=== PATIENT | female | born 1965 | race Hispanic/Latino ===

== ENCOUNTER 2019-04-20 07:43 | Emergency (ER) | payer OTHER ==
[2019-04-20] MEDS ORDERED: CEFTRIAXONE SODIUM 2 GM VIAL ONE (08:25)
[2019-04-20] MEDS ORDERED: ONDANSETRON HCL 4 MG/2 ML VIAL ONE (08:25)
[2019-04-20] MEDS ORDERED: SODIUM CHLORIDE 0.9% 1000ML 2,000 ML IV ONE (08:26)
[2019-04-20] MEDS ORDERED: SODIUM CHLORIDE 0.9% 500ML 500 ML IV ONE (08:27)
[2019-04-20 08:32] LABS: BASOPHILS % (AUTO) 0.3 % (0.0-5.0); EOSINOPHILS % (AUTO) 2.2 % (0.0-8.0); HEMATOCRIT 34.2 % (36-48); LYMPHOCYTES % (AUTO) 14.2 % (21.0-51.0); MEAN CORPUSCULAR HEMOGLOBIN 29.2 pg (27.0-33.0); MEAN CORPUSCULAR HGB CONC 33.8 g/dL (32.0-36.0); MEAN CORPUSCULAR VOLUME 86.3 fL (79-99); MONOCYTES % (AUTO) 5.1 % (3.0-13.0); NEUTROPHILS % (AUTO) 78.2 % (40.0-77.0); PLATELET COUNT (AUTO) 270 K/uL (130-400); RED BLOOD CELL COUNT(AUTO) 3.96 MIL/uL (4.00-5.50); RED CELL DISTRIBUTION WIDTH 13.3 % (11.0-15.5); WHITE BLOOD COUNT (AUTO) 12.9 K/uL (4.8-10.8)
[2019-04-20 08:37] LABS: CARBON DIOXIDE 27 mmol/L (21-32); CHLORIDE 106 mmol/L (101-111); CREATININE 0.9 mg/dL (0.5-1.5); GLOMERULAR FILTR. RATE CALC 69 mL/min (>60); GLUCOSE,RANDOM 135 mg/dL (70-105); POTASSIUM 3.3 mmol/L (3.5-5.1); SODIUM SERUM 142 mmol/L (136-145); UREA NITROGEN, BLOOD 11 mg/dL (7-18)
[2019-04-20 08:40] LABS: INR 0.95 (0.85-1.15); PARTIAL THROMBOPLASTIN TIME 27.7 SEC (26.3-35.5)
[2019-04-20 08:48] LABS: ALANINE AMINOTRANSFERASE 33 U/L (12-78); ALBUMIN 3.4 g/dL (3.5-5.0); ASPARTATE AMINOTRANSFERASE 25 U/L (10-37); BILIRUBIN,TOTAL 0.4 mg/dL (0.2-1.0); CREATINE KINASE, TOTAL 85 U/L (21-232); MYOGLOBIN 47 ng/mL (10-92); TROPONIN I < 0.04 ng/mL (0.00-0.06)
[2019-04-20 08:52] LABS: APPEARANCE,URINE CLEAR (CLEAR); BILIRUBIN,URINE NEGATIVE (NEGATIVE); COLOR,URINE YELLOW (YELLOW); GLUCOSE, URINE (UA) NEGATIVE (NEGATIVE); KETONES,URINE NEGATIVE (NEGATIVE); LEUKOCYTE ESTERASE ,URINE NEGATIVE (NEGATIVE); NITRATE,URINE NEGATIVE (NEGATIVE); OCCULT BLOOD,URINE NEGATIVE (NEGATIVE); PH,URINE 5.5 (5.0-8.0); PROTEIN,URINE NEGATIVE (NEGATIVE); UROBILINOGEN,URINE 0.2 mg/dL (0.2-1.0)
[2019-04-20] MEDS ORDERED: DIPHENOXYLATE HCL/ATROPINE 2.5/0.025 MG TAB PO ONE (09:15)
== END 2019-04-20 10:55 | disposition home or self-care (01) ==
LOC: EDH 07:43
DX: K52.9 Noninfective gastroenteritis and colitis, unspecified (principal); E11.9 Type 2 diabetes mellitus without complications; I10 Essential (primary) hypertension; F32.9 Major depressive disorder, single episode, unspecified; Z90.710 Acquired absence of both cervix and uterus
CPT/HCPCS: 36415; 71045; 80053; 81003; 82550; 83605; 83874; 84484; 85025; 85610; 85730; 87040 ×2; 87088; 87804 ×2; 93005; 96361; 96374; 96375; 99285; J0696; J2405; J7030; J7040

== ENCOUNTER → 2019-04-30 | Outpatient (CLI) | payer OTHER ==
[~2019-04-30] VITALS: Ht 153.7 cm; Wt 78.6 kg
[~2019-04-30] MED LIST: ASPI-555 PO; CALC600T12 PO; CEFAZOLIN SODIUM 1 GM VIAL IVP SCH; CHOL100040 PO; CLOT15CR5 TP; HYDR25TA PO; IRBE300T19 PO; LACT1CAP72 PO; RANI150T7 PO; SERTRALINE PO
[2019-04-30 10:16] LABS: BASOPHILS % (AUTO) 0.6 % (0.0-5.0); EOSINOPHILS % (AUTO) 2.3 % (0.0-8.0); HEMATOCRIT 36.6 % (36-48); LYMPHOCYTES % (AUTO) 25.1 % (21.0-51.0); MEAN CORPUSCULAR HEMOGLOBIN 29.6 pg (27.0-33.0); MEAN CORPUSCULAR HGB CONC 33.7 g/dL (32.0-36.0); MEAN CORPUSCULAR VOLUME 87.9 fL (79-99); MONOCYTES % (AUTO) 5.1 % (3.0-13.0); NEUTROPHILS % (AUTO) 66.9 % (40.0-77.0); NUCLEATED RED BLOOD CELLS 0.1 % (0.0-0.19); PLATELET COUNT (AUTO) 321 K/uL (130-400); RED BLOOD CELL COUNT(AUTO) 4.16 MIL/uL (4.00-5.50); WHITE BLOOD COUNT (AUTO) 12.6 K/uL (4.8-10.8)
[2019-04-30 10:24] LABS: CREATININE 1.2 mg/dL (0.5-1.5); POTASSIUM 4.1 mmol/L (3.5-5.1)
[2019-04-30 10:44] VITALS: BP 150/68
== END | disposition home or self-care (01) ==
LOC: DAH 10:00 → EDSTATUS 05-04 08:40
PROVIDERS: ATTEND Neurological Surgery
DX: Z01.818 Encounter for other preprocedural examination (principal)
CPT/HCPCS: 36415; 80048; 85025; 93005

== ENCOUNTER → 2019-05-24 | Outpatient (CLI) | payer OTHER ==
[~2019-05-24] MED LIST changes: -CEFAZOLIN SODIUM 1 GM VIAL IVP SCH
[2019-05-24 15:47] LABS: BASOPHILS % (AUTO) 0.3 % (0.0-5.0); EOSINOPHILS % (AUTO) 2.3 % (0.0-8.0); LYMPHOCYTES % (AUTO) 27.6 % (21.0-51.0); MEAN CORPUSCULAR HEMOGLOBIN 29.1 pg (27.0-33.0); MEAN CORPUSCULAR HGB CONC 33.4 g/dL (32.0-36.0); MEAN CORPUSCULAR VOLUME 87.1 fL (79-99); MONOCYTES % (AUTO) 5.9 % (3.0-13.0); NEUTROPHILS % (AUTO) 63.9 % (40.0-77.0); PLATELET COUNT (AUTO) 322 K/uL (130-400); RED BLOOD CELL COUNT(AUTO) 4.13 MIL/uL (4.00-5.50); RED CELL DISTRIBUTION WIDTH 13.7 % (11.0-15.5); WHITE BLOOD COUNT (AUTO) 11.6 K/uL (4.8-10.8)
[2019-05-24 16:12] LABS: ALBUMIN 3.9 g/dL (3.5-5.0); BILIRUBIN,TOTAL 0.4 mg/dL (0.2-1.0); CREATININE 0.8 mg/dL (0.5-1.5); MAGNESIUM 1.9 mg/dL (1.80-2.40); POTASSIUM 3.5 mmol/L (3.5-5.1); THYROID STIMULATING HORMONE 4.72 uIU/mL (0.36-3.74); TOTAL PROTEIN, SERUM 7.7 g/dL (6.0-8.3)
== END | disposition home or self-care (01) ==
LOC: LAB 15:16
PROVIDERS: ATTEND Internal Medicine
DX: I20.1 Angina pectoris with documented spasm (principal); R53.83 Other fatigue; I10 Essential (primary) hypertension
CPT/HCPCS: 36415; 80053; 83735; 84100; 84443; 85025; 86677

== ENCOUNTER → 2019-08-11 | Outpatient (CLI) | payer OTHER ==
[2019-08-11 09:22] LABS: BASOPHILS % (AUTO) 0.2 % (0.0-5.0); EOSINOPHILS % (AUTO) 0.2 % (0.0-8.0); HEMATOCRIT 36.4 % (36-48); LYMPHOCYTES % (AUTO) 13.4 % (21.0-51.0); MEAN CORPUSCULAR HEMOGLOBIN 29.4 pg (27.0-33.0); MEAN CORPUSCULAR HGB CONC 33.5 g/dL (32.0-36.0); MEAN CORPUSCULAR VOLUME 87.6 fL (79-99); MONOCYTES % (AUTO) 5.6 % (3.0-13.0); NEUTROPHILS % (AUTO) 80.6 % (40.0-77.0); NUCLEATED RED BLOOD CELLS 0.1 % (0.0-0.19); PLATELET COUNT (AUTO) 333 K/uL (130-400); RED BLOOD CELL COUNT(AUTO) 4.16 MIL/uL (4.00-5.50); RED CELL DISTRIBUTION WIDTH 13.9 % (11.0-15.5); WHITE BLOOD COUNT (AUTO) 18.2 K/uL (4.8-10.8)
[2019-08-11 09:30] LABS: HEMOGLOBIN A1C 6.1 % (4.0-6.0)
[2019-08-11 09:45] LABS: ALBUMIN 3.8 g/dL (3.5-5.0); BILIRUBIN,TOTAL 0.2 mg/dL (0.2-1.0); CREATININE 0.8 mg/dL (0.5-1.5); POTASSIUM 3.8 mmol/L (3.5-5.1); THYROID STIMULATING HORMONE 1.94 uIU/mL (0.36-3.74); TOTAL PROTEIN, SERUM 8.2 g/dL (6.0-8.3)
[2019-08-11 11:25] LABS: ERYTHROCYTE SEDIMENTATION RATE 45 MM/HR (0-30)
== END | disposition home or self-care (01) ==
LOC: RAH 07:08
PROVIDERS: ATTEND Internal Medicine
DX: S83.241A Other tear of medial meniscus, current injury, right knee, initial encounter (principal); S83.281A Other tear of lateral meniscus, current injury, right knee, initial encounter; M25.461 Effusion, right knee; M23.91 Unspecified internal derangement of right knee; X58.XXXA Exposure to other specified factors, initial encounter; Y93.89 Activity, other specified; Y92.89 Other specified places as the place of occurrence of the external cause; Y99.8 Other external cause status
CPT/HCPCS: 36415; 73721; 80053; 80061; 83036; 84443; 85025; 85651; 86038

== ENCOUNTER → 2019-10-05 | Outpatient (CLI) | payer OTHER | END | disposition home or self-care (01) | LOC: RAH 11:04 | PROVIDERS: ATTEND Internal Medicine | DX: M93.261 Osteochondritis dissecans, right knee (principal) | CPT/HCPCS: 73560 ==

== ENCOUNTER → 2019-11-05 | Outpatient (CLI) | payer OTHER ==
[~2019-11-05] MED LIST changes: +IRBE300T18 PO; -IRBE300T19 PO
[2019-11-05 10:02] LABS: BASOPHILS % (AUTO) 0.4 % (0.0-5.0); EOSINOPHILS % (AUTO) 0.4 % (0.0-8.0); HEMATOCRIT 39.1 % (36-48); LYMPHOCYTES % (AUTO) 18.6 % (21.0-51.0); MEAN CORPUSCULAR HEMOGLOBIN 27.9 pg (27.0-33.0); MEAN CORPUSCULAR HGB CONC 31.7 g/dL (32.0-36.0); MEAN CORPUSCULAR VOLUME 88.1 fL (79-99); MONOCYTES % (AUTO) 4.4 % (3.0-13.0); PLATELET COUNT (AUTO) 363 K/uL (130-400); RED BLOOD CELL COUNT(AUTO) 4.44 MIL/uL (4.00-5.50); RED CELL DISTRIBUTION WIDTH 13.1 % (11.0-15.5); WHITE BLOOD COUNT (AUTO) 17.3 K/uL (4.8-10.8)
[2019-11-05 10:10] LABS: HEMOGLOBIN A1C 7.2 % (4.0-6.0)
[2019-11-05 10:29] LABS: ALBUMIN 3.9 g/dL (3.5-5.0); BILIRUBIN,TOTAL 0.6 mg/dL (0.2-1.0); CREATININE 0.8 mg/dL (0.5-1.5); POTASSIUM 3.7 mmol/L (3.5-5.1); THYROID STIMULATING HORMONE 1.85 uIU/mL (0.36-3.74); TOTAL PROTEIN, SERUM 8.2 g/dL (6.0-8.3)
[2019-11-05 11:29] LABS: ERYTHROCYTE SEDIMENTATION RATE 34 MM/HR (0-30)
== END | disposition home or self-care (01) ==
LOC: LAB 09:27
PROVIDERS: ATTEND Internal Medicine
DX: E11.69 Type 2 diabetes mellitus with other specified complication (principal); G61.9 Inflammatory polyneuropathy, unspecified
CPT/HCPCS: 36415; 80053; 80061; 82043; 83036; 84443; 85025; 85651

== ENCOUNTER 2019-11-27 02:33 | Inpatient (IN) | payer OTHER ==
[~2019-11-27] VITALS: Ht 152.4 cm; Wt 80.7 kg
[2019-11-27] MEDS ORDERED: ASPIRIN 325 MG TABLET ONE (02:53)
[2019-11-27 03:00] LABS: BASOPHILS % (AUTO) 0.4 % (0.0-5.0); EOSINOPHILS % (AUTO) 2.1 % (0.0-8.0); LYMPHOCYTES % (AUTO) 25.9 % (21.0-51.0); MEAN CORPUSCULAR HGB CONC 32.9 g/dL (32.0-36.0); MEAN CORPUSCULAR VOLUME 85.4 fL (79-99); NEUTROPHILS % (AUTO) 66.2 % (40.0-77.0); PLATELET COUNT (AUTO) 296 K/uL (130-400); RED CELL DISTRIBUTION WIDTH 12.8 % (11.0-15.5); WHITE BLOOD COUNT (AUTO) 11.4 K/uL (4.8-10.8)
[2019-11-27] MEDS ORDERED: KETOROLAC TROMETHAMINE 15MG/ML ONE (03:08)
[2019-11-27] MEDS ORDERED: LIDOCAINE 5% TOPICAL PATCH TP ONE (03:08)
[2019-11-27 03:11] LABS: CREATININE 0.9 mg/dL (0.5-1.5); POTASSIUM 3.9 mmol/L (3.5-5.1)
[2019-11-27 03:16] LABS: ALBUMIN 3.9 g/dL (3.5-5.0); BILIRUBIN,TOTAL 0.3 mg/dL (0.2-1.0); TOTAL PROTEIN, SERUM 7.4 g/dL (6.0-8.3)
[2019-11-27 03:37] LABS: INR 0.95 (0.85-1.15); PARTIAL THROMBOPLASTIN TIME 27.2 SEC (26.3-35.5); PROTHROMBIN TIME 10.3 SEC (9.6-11.6)
[2019-11-27] MEDS ORDERED: IPRATROPIUM/ALBUTEROL SULFATE 3 ML SOLUTION IH ONE (03:46)
[2019-11-27] MEDS ORDERED: ONDANSETRON HCL 4 MG/2 ML VIAL IVP PRN (06:00)
[2019-11-27] MEDS ORDERED: ACETAMINOPHEN 325 MG TAB PO PRN ×2 (06:00)
[2019-11-27 08:00] VITALS: BP 130/70
[2019-11-27] MEDS: PANTOPRAZOLE 40 MG/VIAL IVP SCH (09:00)
--- NOTE | 2019-11-27 09:30 | NUR ---
Spoke with Dr. Joyner; will f/u with pt. as outpatient in his clinic if she is still having issues.
[2019-11-27 09:44] LABS: CREATINE KINASE, TOTAL 62 U/L (21-232); MYOGLOBIN 40 ng/mL (10-92); TROPONIN I < 0.04 ng/mL (0.00-0.06)
[2019-11-27 11:45] VITALS: BP 113/71
[2019-11-27] MEDS: ZOSYN 3.375GM +NS 50ML IV SCH ×3 (12:26→21:42)
[2019-11-27] MEDS: SODIUM CHLORIDE 0.9% 1000ML 1,000 ML IV SCH ×2 (12:26→21:46)
--- NOTE | 2019-11-27 15:26 | NUR ---
D/C PLAN CM spoke to pt regarding d/c planning. Pt is ind. and lives with spouse. States spouse can assist in care if needed. Plan to home. No needs verbalized or identified. CM to f/u. Addendum: 11/27/19 at 1527 by OBDULIA SHELLEY CM Amended: Links added.
[2019-11-27 15:45] LABS: CREATINE KINASE, TOTAL 73 U/L (21-232); MYOGLOBIN 36 ng/mL (10-92); TROPONIN I < 0.04 ng/mL (0.00-0.06)
[2019-11-27 16:00] VITALS: BP 143/80
[2019-11-27] MEDS ORDERED: LORAZEPAM 2 MG/ML 1 ML VIAL IVP ONE (17:30)
[2019-11-27] MEDS: KETOROLAC TROMETHAMINE 15MG/ML IV PRN (17:32)
[2019-11-27 19:40] VITALS: BP 108/60
[2019-11-28] VITALS: BP 133/70
[2019-11-28] MEDS: KETOROLAC TROMETHAMINE 15MG/ML IV PRN (00:18)
[2019-11-28] MEDS: SODIUM CHLORIDE 0.9% 1000ML 1,000 ML IV SCH ×2 (02:00→12:00)
[2019-11-28 04:00] VITALS: BP 118/68
[2019-11-28 04:58] LABS: BASOPHILS % (AUTO) 0.3 % (0.0-5.0); EOSINOPHILS % (AUTO) 2.5 % (0.0-8.0); HEMATOCRIT 30.8 % (36-48); LYMPHOCYTES % (AUTO) 26.2 % (21.0-51.0); MEAN CORPUSCULAR HEMOGLOBIN 28.3 pg (27.0-33.0); MEAN CORPUSCULAR HGB CONC 32.8 g/dL (32.0-36.0); MEAN CORPUSCULAR VOLUME 86.3 fL (79-99); MONOCYTES % (AUTO) 5.9 % (3.0-13.0); NEUTROPHILS % (AUTO) 64.6 % (40.0-77.0); PLATELET COUNT (AUTO) 252 K/uL (130-400); RED BLOOD CELL COUNT(AUTO) 3.57 MIL/uL (4.00-5.50); RED CELL DISTRIBUTION WIDTH 12.7 % (11.0-15.5); WHITE BLOOD COUNT (AUTO) 9.7 K/uL (4.8-10.8)
[2019-11-28 05:27] LABS: BILIRUBIN,TOTAL 0.4 mg/dL (0.2-1.0); MAGNESIUM 1.5 mg/dL (1.80-2.40); POTASSIUM 3.6 mmol/L (3.5-5.1); TOTAL PROTEIN, SERUM 6.3 g/dL (6.0-8.3)
[2019-11-28] MEDS: ZOSYN 3.375GM +NS 50ML IV SCH ×2 (05:35→15:07)
[2019-11-28] MEDS ORDERED: LIDOCAINE HCL-MPF 1% 2ML VIAL IV PRN ×2 (07:00)
[2019-11-28] MEDS ORDERED: MAGNESIUM 2GM PREMIX 50ML 50 ML IV PRN (07:00)
[2019-11-28] MEDS ORDERED: POTASSIUM CHLORIDE 20 MEQ ERTAB PO PRN (07:00)
[2019-11-28] MEDS ORDERED: POTASSIUM CHLORIDE 10% ELIXIR 20 MEQ/15 ML UDCUP PO PRN (07:00)
[2019-11-28] MEDS ORDERED: POTASSIUM CHLORIDE 20MEQ/100ML 100 ML IV PRN ×2 (07:00)
[2019-11-28 08:00] VITALS: BP 149/78
[2019-11-28] MEDS: PANTOPRAZOLE 40 MG/VIAL IVP SCH (09:14)
[2019-11-28] MEDS ORDERED: LORAZEPAM 2 MG/ML 1 ML VIAL IVP SCH (11:15)
[2019-11-28 11:26] VITALS: BP 126/57
--- NOTE | 2019-11-28 11:26 | NUR ---
PLAN OF CARE DISCUSSED WITH RN NOTE MADE OF SEVERE FATTY LIVER ON IMAGING- WENT TO SPEAK TO PATIENT AT BEDSIDE- SHE STATES OFTEN IN PAIN AT HOME, IN BED, ON THE COUCH, IN ABD PAIN. WILL NEED TO EAT AND TOLERATE FOOD . POSSIBLE -DIET CONSULT FOR FATTY LIVER DISEAS IN AM ? IF STAYS? PATIENT AGREEABLE TO CONSULT. WILL FOLLOW UP WITH RN Addendum: 11/28/19 at 1132 by FERNANDO CHRISTIANSON RN CM Amended: Links added.
[2019-11-28 16:38] VITALS: BP 160/89
--- NOTE | 2019-11-28 19:10 | NUR ---
PATIENT GIVEN DISCHARGE INSTRUCTIONS AND VERBALIZED UNDERSTANDING, NO QUESTIONS OR CONCERNS AT THIS TIME . IV REMOVED WITH CATHETER AND SITE DRESSED. PATIENT INSTRUCTED TO CALL HER PRIMARY PHYSICIAN FOR FOLLOW-UP APPOINTMENT . PATIENT TAKING TO ED LOBBY AND LEFT WITH FOR HOME.
[2019-11-29] MEDS ORDERED: SIMV10TA97 PO (16:59)
[2019-11-29] MEDS ORDERED: METF-444 PO (16:59)
[2019-11-29] MEDS ORDERED: DILT120C89 PO (16:59)
[2019-11-29] MEDS ORDERED: QUET100T33 PO (16:59)
[2019-11-29] MEDS ORDERED: ICOS1CAP PO (16:59)
[2019-11-29] MEDS ORDERED: AMIL5TAB8 PO (16:59)
[2019-11-29] MEDS ORDERED: GABA-529 PO (16:59)
[2019-11-29] MEDS ORDERED: TRAZ150T79 PO (16:59)
[2019-11-29] MEDS ORDERED: SERT100T PO (16:59)
[2019-11-29] MEDS ORDERED: IBUP-2077 PO (16:59)
[2019-11-29] MEDS ORDERED: ALBU2.5V2 IH (16:59)
[2019-11-29] MEDS ORDERED: FLUT1DIS3 IH (16:59)
[2019-11-29] MEDS ORDERED: MONT10TA26 PO (16:59)
[2019-11-29] MEDS ORDERED: NITR0.4T50 SL (16:59)
[2019-11-29] MEDS ORDERED: ALPR0.5T PO (16:59)
== END 2019-11-28 19:41 | disposition home or self-care (01) | DRG 440 ==
LOC: EDH 02:33 → EDHIP 05:34 → 4CH 07:31
PROVIDERS: ADMIT Family Medicine; ATTEND Family Medicine
DX: K85.90 Acute pancreatitis without necrosis or infection, unspecified (principal); E11.9 Type 2 diabetes mellitus without complications; I10 Essential (primary) hypertension; E87.6 Hypokalemia; F32.9 Major depressive disorder, single episode, unspecified; Z88.8 Allergy status to other drugs, medicaments and biological substances
CPT/HCPCS: 36415; 71045; 74183; 76705; 80053; 82150; 82550; 82948; 83690; 83735; 83874; 83880; 84484; 85025; 85610; 85730; 93005; C9113; G0378; J1885; J2060; J2543; J3475

== ENCOUNTER 2019-11-29 12:01 | Inpatient (IN) | payer OTHER ==
[~2019-11-29] VITALS: Ht 152.4 cm; Wt 78.7 kg
[2019-11-29 12:20] VITALS: BP 136/67
--- NOTE | 2019-11-29 12:39 | NUR ---
PT HAVING ABD PAIN THAT RADIATES TO BACK Addendum: 11/29/19 at 1902 by COLTON HUGHES LVN RN Amended: Links added.
[2019-11-29] MEDS ORDERED: HYDROMORPHONE HCL 0.5 MG/0.5 ML ML ONE ×2 (12:56→16:20)
[2019-11-29] MEDS: DEXTROSE 5 %-0.45 % NACL 1,000 ML IV SCH ×4 (13:03→23:40)
--- NOTE | 2019-11-29 15:15 | NUR ---
GI CONSULT SPOKE TO DR. DELAROSA REGARDING NEW CONSULT. STATED CALL BACK ONCE ALL IMAGING AND LABS RESULTS ARE POSTED.
[2019-11-29 15:37] VITALS: BP 127/61
[2019-11-29] MEDS ORDERED: ONDANSETRON HCL 4 MG/2 ML VIAL ONE (15:59)
[2019-11-29 16:14] LABS: HEMATOCRIT 32.5 % (36-48); MEAN CORPUSCULAR HEMOGLOBIN 27.6 pg (27.0-33.0); MEAN CORPUSCULAR HGB CONC 32.3 g/dL (32.0-36.0); MEAN CORPUSCULAR VOLUME 85.5 fL (79-99); PLATELET COUNT (AUTO) 263 K/uL (130-400); RED CELL DISTRIBUTION WIDTH 12.7 % (11.0-15.5); WHITE BLOOD COUNT (AUTO) 11.3 K/uL (4.8-10.8)
[2019-11-29 16:30] LABS: ALBUMIN 3.4 g/dL (3.5-5.0); BILIRUBIN,TOTAL 0.4 mg/dL (0.2-1.0); CREATININE 0.8 mg/dL (0.5-1.5); POTASSIUM 3.6 mmol/L (3.5-5.1); TOTAL PROTEIN, SERUM 7.4 g/dL (6.0-8.3)
[2019-11-29] MEDS ORDERED: QUET100T33 PO (16:59)
[2019-11-29] MEDS ORDERED: MONT10TA26 PO (16:59)
[2019-11-29] MEDS ORDERED: NITR0.4T50 SL (16:59)
[2019-11-29] MEDS ORDERED: TRAZ150T79 PO (16:59)
[2019-11-29] MEDS ORDERED: ALBU2.5V2 IH (16:59)
[2019-11-29] MEDS ORDERED: FLUT1DIS3 IH (16:59)
[2019-11-29] MEDS ORDERED: SERT100T PO (16:59)
[2019-11-29] MEDS ORDERED: DILT120C89 PO (16:59)
[2019-11-29] MEDS ORDERED: GABA-529 PO (16:59)
[2019-11-29] MEDS ORDERED: AMIL5TAB8 PO (16:59)
[2019-11-29] MEDS ORDERED: METF-444 PO (16:59)
[2019-11-29] MEDS ORDERED: IBUP-2077 PO (16:59)
[2019-11-29] MEDS ORDERED: SIMV10TA97 PO (16:59)
[2019-11-29] MEDS ORDERED: ALPR0.5T PO (16:59)
[2019-11-29] MEDS ORDERED: ICOS1CAP PO (16:59)
[2019-11-29] MEDS ORDERED: ONDANSETRON HCL 4 MG/2 ML VIAL IVP PRN (17:00)
[2019-11-29] MEDS ORDERED: CLONIDINE HCL 0.1 MG TABLET PO PRN (17:00)
[2019-11-29] MEDS ORDERED: ZOLPIDEM TARTRATE 5 MG TAB PO PRN (17:00)
--- NOTE | 2019-11-29 17:11 | NUR ---
SPOKE TO DR. DIANA DELAROSA, RESULTS FOR ALL IMAGING AND LABS DISCUSSED. PER DR. DELAROSA, NO NEED FOR FURTHER PROCEDURES. MAY FOLLOW UP IN OFFICE IN [address] DELAROSA STATED, PRIMARY MAY RECOMMEND SURGERY FOR SLUDGE IN THE GALLBLADDER.
--- NOTE | 2019-11-29 17:25 | NUR ---
SPOKE TO DR. SIFUENTES REGARDING RECOMMENDATIONS FROM DR. DELAROSA. PER DR. SIFUENTES, ORDER HIDA SCAN AND LABS IN AM. PATIENT NOTIFIED OF PLAN AND VOICED UNDERSTANDING.
[2019-11-29 19:46] VITALS: BP 115/67
[2019-11-29] MEDS ORDERED: ALPRAZOLAM 0.5 MG TABLET PO PRN (21:15)
[2019-11-29] MEDS ORDERED: NITROGLYCERIN 0.4 MG SL TAB SL PRN (21:15)
--- NOTE | 2019-11-29 21:23 | NUR ---
SPOKE WITH MARIA OVER THE PHONE, HE ORDERED TO CONTINUE HOME MEDICATION XANAX 0.5 MG PRN FOR ANXIETY, AMILORIDE 5 MG DAILY, CARDIZEM 120 MG BID, GABAPENTIN 100 MG TID, MONTELUKAST 10 MG DAILY, QUETIAPINE 100 MG DAILY, ZOLOFT 150 MG HS, SIMVASTATIN 10 MG HS, TRAZADONE 150 MG HS ASA 81 MG DAILY HOWEVER PATIENT IS ON NPO FOR NOW , HYDROCHLOROTHIAZIDE 25 MG DAILY, IRBESARTAN 300 MG DAILY
[2019-11-29] MEDS ORDERED: QUETIAPINE FUMARATE 25 MG TAB ONE (22:00)
[2019-11-29] MEDS: QUETIAPINE FUMARATE 100 MG TAB PO SCH (22:00)
[2019-11-29] MEDS ORDERED: QUETIAPINE FUMARATE 100 MG TAB ONE (22:01)
[2019-11-29] MEDS ORDERED: MONTELUKAST SODIUM 10 MG TAB ONE (22:01)
[2019-11-29] MEDS ORDERED: SIMVASTATIN 10 MG TABLET ONE (22:01)
[2019-11-29] MEDS: TRAZODONE HCL 50 MG TAB PO SCH (22:09)
[2019-11-29] MEDS: SIMVASTATIN 10 MG TABLET PO SCH (22:10)
[2019-11-29] MEDS: MONTELUKAST SODIUM 10 MG TAB PO SCH (22:10)
[2019-11-30 00:30] VITALS: BP 99/53
[2019-11-30] MEDS: DEXTROSE 5 %-0.45 % NACL 1,000 ML IV SCH ×5 (01:50→15:10)
[2019-11-30 03:54] VITALS: BP 115/69
[2019-11-30 04:31] LABS: MEAN CORPUSCULAR HGB CONC 32.3 g/dL (32.0-36.0); MEAN CORPUSCULAR VOLUME 86.8 fL (79-99); PLATELET COUNT (AUTO) 268 K/uL (130-400); RED BLOOD CELL COUNT(AUTO) 3.57 MIL/uL (4.00-5.50); RED CELL DISTRIBUTION WIDTH 12.7 % (11.0-15.5); WHITE BLOOD COUNT (AUTO) 10.3 K/uL (4.8-10.8)
[2019-11-30 05:09] LABS: CREATININE 0.9 mg/dL (0.5-1.5); POTASSIUM 3.3 mmol/L (3.5-5.1)
[2019-11-30] MEDS: HYDROMORPHONE HCL 0.5 MG/0.5 ML ML IVP PRN (05:15)
[2019-11-30 07:30] VITALS: BP 95/58
[2019-11-30] MEDS: PANTOPRAZOLE SODIUM 40 MG TABLET.DR PO SCH ×2 (09:00→18:06)
[2019-11-30] MEDS: DILTIAZEM HCL 120 MG CAP.SR.24H PO SCH ×2 (09:00→21:00)
[2019-11-30] MEDS: HYDROCHLOROTHIAZIDE 25 MG TABLET PO SCH ×2 (09:00→18:06)
[2019-11-30] MEDS ORDERED: AMILORIDE HCL 5 MG TABLET PO SCH (09:00)
[2019-11-30] MEDS: GABAPENTIN 100 MG CAPSULE PO SCH ×3 (09:00→22:08)
[2019-11-30] MEDS ORDERED: QUETIAPINE FUMARATE 100 MG TAB PO SCH (09:00)
[2019-11-30] MEDS ORDERED: ASPIRIN 81 MG EC TAB PO SCH (09:00)
[2019-11-30] MEDS ORDERED: MONTELUKAST SODIUM 10 MG TAB PO SCH (09:00)
[2019-11-30 10:57] VITALS: BP 117/83
[2019-11-30] MEDS: KETOROLAC TROMETHAMINE 15MG/ML IV PRN ×2 (13:16→22:16)
--- NOTE | 2019-11-30 15:19 | NUR ---
INITIAL Patient lives with spouse, Beto Lord, [phone]. No home services or DME. Patient is independent and drives. 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 PCP is Dr. Morales. Pharmacy is [facility] located on [address] in [place]. DCP is home.
[2019-11-30] MEDS ORDERED: POTASSIUM CHLORIDE 10% ELIXIR 20 MEQ/15 ML UDCUP PO PRN (16:00)
[2019-11-30] MEDS ORDERED: POTASSIUM CHLORIDE 20 MEQ ERTAB PO PRN (16:00)
[2019-11-30] MEDS ORDERED: LIDOCAINE HCL-MPF 1% 2ML VIAL IV PRN ×2 (16:00→18:00)
[2019-11-30] MEDS ORDERED: POTASSIUM CHLORIDE 20MEQ/100ML 100 ML IV PRN ×2 (16:00→18:00)
[2019-11-30 17:29] VITALS: BP 134/74
[2019-11-30] MEDS: SERTRALINE HCL 50 MG TABLET PO SCH (18:05)
[2019-11-30] MEDS: LOSARTAN 100 MG TABLET PO SCH (18:05)
[2019-11-30] MEDS: ENOXAPARIN SODIUM 40 MG/0.4 ML SYRINGE SQ SCH (18:07)
[2019-11-30 19:39] VITALS: BP 128/75
[2019-11-30] MEDS ORDERED: SIMVASTATIN 10 MG TABLET PO SCH (21:00)
[2019-11-30] MEDS: QUETIAPINE FUMARATE 100 MG TAB PO SCH (22:08)
[2019-11-30] MEDS: SIMVASTATIN 10 MG TABLET PO SCH (22:08)
[2019-11-30] MEDS: MONTELUKAST SODIUM 10 MG TAB PO SCH (22:08)
[2019-11-30] MEDS: TRAZODONE HCL 50 MG TAB PO SCH (22:09)
--- NOTE | 2019-11-30 23:25 | NUR ---
HOME MEDS ENTERED CORRECTIONS ON MEDICATIONS PER PATIENT TO TRAZODONE AND GABAPENTIN.
[2019-12-01] VITALS (27 sets, daily range): BP systolic 95–151; BP diastolic 53–81
[2019-12-01] MEDS: DEXTROSE 5 %-0.45 % NACL 1,000 ML IV SCH ×7 (02:20→17:50)
[2019-12-01] MEDS: ENOXAPARIN SODIUM 40 MG/0.4 ML SYRINGE SQ SCH (08:40)
[2019-12-01] MEDS: LOSARTAN 100 MG TABLET PO SCH (08:56)
[2019-12-01] MEDS: DILTIAZEM HCL 120 MG CAP.SR.24H PO SCH ×2 (08:57→22:20)
[2019-12-01] MEDS: HYDROCHLOROTHIAZIDE 25 MG TABLET PO SCH (08:57)
[2019-12-01] MEDS: PANTOPRAZOLE SODIUM 40 MG TABLET.DR PO SCH (08:57)
[2019-12-01] MEDS: SERTRALINE HCL 50 MG TABLET PO SCH (08:58)
[2019-12-01] MEDS: KETOROLAC TROMETHAMINE 15MG/ML IV PRN (08:59)
[2019-12-01] MEDS: HYDROMORPHONE HCL 0.5 MG/0.5 ML ML IVP PRN (13:56)
[2019-12-01] MEDS ORDERED: BUPIVACAINE/EPI/PF 0.5% 30ML VIAL IJ ONE (16:16)
[2019-12-01] MEDS ORDERED: LIDOCAINE PF 2% 5ML ABBOJECT ONE (16:52)
[2019-12-01] MEDS ORDERED: ONDANSETRON HCL 4 MG/2 ML VIAL ONE (16:52)
[2019-12-01] MEDS ORDERED: PROPOFOL 10 MG/ML 20ML VIAL IV ONE (16:53)
[2019-12-01] MEDS ORDERED: DEXAMETHASONE SOD PHOSPHATE 10MG/ML 1ML VIAL ONE (16:53)
[2019-12-01] MEDS ORDERED: MIDAZOLAM HCL 1 MG/ML 2ML VIAL ONE (16:53)
[2019-12-01] MEDS ORDERED: FENTANYL CITRATE PF 50 MCG/1 ML 2ML VIAL ONE ×2 (16:53→17:54)
[2019-12-01] MEDS ORDERED: IOHEXOL-350 50ML VIAL IV ONE (16:56)
[2019-12-01] MEDS ORDERED: ROCURONIUM 10MG/1ML SYR 10 MG/ML ML ONE (16:59)
[2019-12-01] MEDS ORDERED: CEFAZOLIN SODIUM 1 GM VIAL ONE ×2 (17:20)
[2019-12-01] MEDS ORDERED: GLYCOPYRROLATE 1 MG/5 ML SYRINGE ONE (17:44)
[2019-12-01] MEDS ORDERED: NEOSTIGMINE 5MG/5ML SYR IV ONE (17:44)
[2019-12-01] MEDS ORDERED: KETOROLAC TROMETHAMINE 30MG/ML ONE (17:44)
--- NOTE | 2019-12-01 18:39 | NUR ---
CALLED DR. SIFUENTES REGARDING POSITIVE FOR TOXIGENIC C.DIFF RESULT AT 10:30 A.M. AND LEFT VERBAL MESSAGE TO RETURN CALL with phone number provided.. Called at 11:00 a.m. with results sent with call back phone number provided. Called again at 12:30 p.m. and left message with call back phone number provided. called at 1735 pm and left voicemail and message sent. NO return call back. Called Layne Jackson regarding results and treatment needed and said it was as per but patient to be on CONTACT PLUS. PATIENT HAS BEEN ON CONTACT PLUS. PT DENIES ANY DIARRHEA TODAY REPORTING LAST DIARRHEA STOOL WAS YESTERDAY OF TOTAL 34 DIARRHEA STOOLS. WILL CONTINUE TO FOLLOW.
[2019-12-01] MEDS ORDERED: AMILORIDE HCL 5 MG TABLET PO SCH (21:00)
[2019-12-01] MEDS ORDERED: GABAPENTIN 100 MG CAPSULE PO SCH (21:00)
[2019-12-01] MEDS ORDERED: TRAZODONE HCL 50 MG TAB PO SCH (21:00)
[2019-12-01] MEDS ORDERED: LACTATED RINGERS 1000ML 1,000 ML IV SCH (21:45)
[2019-12-01] MEDS ORDERED: TRAMADOL HCL 50 MG TABLET PO PRN (21:45)
[2019-12-01] MEDS ORDERED: PHARMACY COMMUNICATION MISC SCH (22:15)
[2019-12-01] MEDS: SIMVASTATIN 10 MG TABLET PO SCH (22:21)
[2019-12-01] MEDS: MONTELUKAST SODIUM 10 MG TAB PO SCH (22:22)
[2019-12-01] MEDS: QUETIAPINE FUMARATE 100 MG TAB PO SCH (22:22)
[2019-12-01] MEDS: ACETAMINOPHEN 325 MG TAB PO PRN (22:30)
[2019-12-01] MEDS ORDERED: COMPOUND PO MISCELLANEOUS 1 EACH MISC MISC PRN (22:30)
[2019-12-01] MEDS ORDERED: VANCOMYCIN 250MG/5ML ORAL SOLUTION 40ML PO SCH ×2 (22:45)
[2019-12-02 00:36] VITALS: BP 116/69
[2019-12-02 04:00] VITALS: BP 109/67
[2019-12-02 08:49] VITALS: BP 114/65
[2019-12-02] MEDS ORDERED: VANCOMYCIN 250MG/5ML ORAL SOLUTION 40ML PO SCH ×2 (09:00)
[2019-12-02] MEDS: LOSARTAN 100 MG TABLET PO SCH (09:08)
[2019-12-02] MEDS: SERTRALINE HCL 50 MG TABLET PO SCH (09:09)
[2019-12-02] MEDS: PANTOPRAZOLE SODIUM 40 MG TABLET.DR PO SCH (09:09)
[2019-12-02] MEDS: DILTIAZEM HCL 120 MG CAP.SR.24H PO SCH (09:09)
[2019-12-02] MEDS: HYDROCHLOROTHIAZIDE 25 MG TABLET PO SCH (09:09)
--- NOTE | 2019-12-02 09:46 | NUR ---
Still awaiting callback from Dr. Ag regarding discharge orders. Stable.
[2019-12-02] MEDS: ACETAMINOPHEN 325 MG TAB PO PRN (10:57)
[2019-12-02 11:56] VITALS: BP 123/79
--- NOTE | 2019-12-02 15:00 | NUR ---
DISCHARGED HOME PER ORDER. PER DR. FITZPATRICK: OK TO DC, HAD ALREADY SPOKEN AND DISCUSSED WITH PRIMARY MD ABOUT PLAN. STABLE, DENIES ANY DISTRESS. 4 ABDOMINAL SURGICAL SITES WITH BANDAID INTACT, NO DRAINAGE OR SIGN OF INFECTION. ALL BELONGINGS TAKE. VERBALIZED UNDERSTANDING OF DC INSTRUCTIONS.
== END 2019-12-02 13:25 | disposition home or self-care (01) | DRG 417 ==
LOC: EDH 12:01 → OBSVTOIN 12:16 → EDHIP 12:16 → 4DH 12:25
PROVIDERS: ADMIT Internal Medicine; ATTEND Internal Medicine
PROC: 0FT44ZZ Resection of Gallbladder, Percutaneous Endoscopic Approach (ICD-10-PCS; principal; 2019-11-29)
PROC: BF121ZZ Fluoroscopy of Gallbladder using Low Osmolar Contrast (ICD-10-PCS; 2019-11-29)
DX: K81.2 Acute cholecystitis with chronic cholecystitis (principal); K85.10 Biliary acute pancreatitis without necrosis or infection; A04.72 Enterocolitis due to Clostridium difficile, not specified as recurrent; E78.5 Hyperlipidemia, unspecified; I10 Essential (primary) hypertension
CPT/HCPCS: 36415; 48400; 74176; 78227; 80048; 80053; 82150; 82948; 83690; 84132; 85027; 87493; A9537; C1758; G0378; J0690; J1100; J1170; J1650; J1885; J2001; J2250; J2405; J2704; J2710; J3010; J3370; J3480; J3490; J7030; J7042; J7120; Q9967

== ENCOUNTER → 2020-01-13 | Outpatient (CLI) | payer OTHER ==
[~2020-01-13] MED LIST changes: +ALBU2.5V2 IH; +ALPR0.5T PO; +AMIL5TAB8 PO; -ASPI-555 PO; -CALC600T12 PO; -CHOL100040 PO; -CLOT15CR5 TP; +DILT120C89 PO; +FLUT1DIS3 IH; +GABA-529 PO; +IBUP-2077 PO; +ICOS1CAP PO; -LACT1CAP72 PO; +METF-444 PO; +MONT10TA26 PO; +NITR0.4T50 SL; +QUET100T33 PO; -RANI150T7 PO; +SERT100T PO; -SERTRALINE PO; +SIMV10TA97 PO; +TRAZ150T79 PO
[2020-01-13 11:17] LABS: BASOPHILS % (AUTO) 0.4 % (0.0-5.0); EOSINOPHILS % (AUTO) 1.7 % (0.0-8.0); MEAN CORPUSCULAR HEMOGLOBIN 28.3 pg (27.0-33.0); MEAN CORPUSCULAR HGB CONC 32.2 g/dL (32.0-36.0); MEAN CORPUSCULAR VOLUME 87.9 fL (79-99); MONOCYTES % (AUTO) 4.1 % (3.0-13.0); NEUTROPHILS % (AUTO) 75.4 % (40.0-77.0); PLATELET COUNT (AUTO) 277 K/uL (130-400); RED BLOOD CELL COUNT(AUTO) 4.21 MIL/uL (4.00-5.50); RED CELL DISTRIBUTION WIDTH 13.2 % (11.0-15.5); WHITE BLOOD COUNT (AUTO) 11.5 K/uL (4.8-10.8)
[2020-01-13 11:44] LABS: B-TYPE NATRIURETIC PEPTIDE < 5 pg/mL (0-100)
[2020-01-13 11:55] LABS: ALBUMIN 3.6 g/dL (3.5-5.0); BILIRUBIN,TOTAL 0.3 mg/dL (0.2-1.0); CREATININE 0.9 mg/dL (0.5-1.5); TOTAL PROTEIN, SERUM 7.5 g/dL (6.0-8.3)
== END | disposition home or self-care (01) ==
LOC: RAH 10:50
PROVIDERS: ATTEND Internal Medicine
DX: M54.14 Radiculopathy, thoracic region (principal); R10.9 Unspecified abdominal pain; R09.1 Pleurisy
CPT/HCPCS: 36415; 71046; 80053; 82150; 83690; 83880; 85025

== ENCOUNTER 2020-04-26 06:02 | Day surgery (SDC) | payer OTHER ==
[2020-04-21 08:24] LABS: BASOPHILS % (AUTO) 0.3 % (0.0-5.0); EOSINOPHILS % (AUTO) 1.3 % (0.0-8.0); HEMATOCRIT 37.5 % (36-48); LYMPHOCYTES % (AUTO) 29.9 % (21.0-51.0); MEAN CORPUSCULAR HGB CONC 32.5 g/dL (32.0-36.0); MONOCYTES % (AUTO) 6.2 % (3.0-13.0); NEUTROPHILS % (AUTO) 61.7 % (40.0-77.0); PLATELET COUNT (AUTO) 299 K/uL (130-400); RED BLOOD CELL COUNT(AUTO) 4.36 MIL/uL (4.00-5.50); RED CELL DISTRIBUTION WIDTH 13.8 % (11.0-15.5); WHITE BLOOD COUNT (AUTO) 14.3 K/uL (4.8-10.8)
[2020-04-21 08:29] LABS: CREATININE 0.9 mg/dL (0.5-1.5); POTASSIUM 3.7 mmol/L (3.5-5.1)
[2020-04-25 11:01] VITALS: BP 118/65
--- NOTE | 2020-04-25 13:21 | NUR ---
RE: ABNORMAL LABS SPOKE WITH DR NICHOLAS AND REPORTED ELEVATED WBC 14.3. NO NEW ORDERS RECEIVED, MAY CONTINUE WITH SCHEDULED SURGERY.
[~2020-04-26] VITALS: Ht 152.4 cm; Wt 76.7 kg
[2020-04-26] VITALS (11 sets, daily range): BP systolic 93–118; BP diastolic 51–66
[~2020-04-26 06:02] MED LIST changes: +ACET-66 PO; +AEC81 PO; -ALBU2.5V2 IH; +ALBU8.5H8 IH; -ALPR0.5T PO; +CALCIUM PO; +CETI10TA57 PO; +DULA1.5P SQ; +FAMO-136 PO; +FLAXSEED OIL PO; -GABA-529 PO; +L. A1CAP9 PO; -METF-444 PO; -NITR0.4T50 SL; +OMEGA PO; +TRAZ-187 PO; -TRAZ150T79 PO; +[UNRECOGNIZED DRUG - OTHER] PO
[2020-04-26] MEDS ORDERED: SODIUM CHLORIDE 0.9% 1000ML 1,000 ML IV ONE (06:36)
[2020-04-26] MEDS ORDERED: BUPIVACAINE/PF 0.25% 30ML VIAL IJ ONE (07:01)
[2020-04-26] MEDS ORDERED: CEFAZOLIN SODIUM 1 GM VIAL ONE (07:01)
[2020-04-26] MEDS: CEFAZOLIN SODIUM 1 GM VIAL IVP SCH ×2 (07:15→07:55)
[2020-04-26] MEDS ORDERED: LIDOCAINE HCL-MPF 0.5% 50ML VIAL IJ ONE (07:25)
[2020-04-26] MEDS ORDERED: MIDAZOLAM HCL 1 MG/ML 2ML VIAL ONE (07:56)
[2020-04-26] MEDS ORDERED: FENTANYL CITRATE PF 50 MCG/1 ML 2ML VIAL ONE (08:04)
[2020-04-26] MEDS ORDERED: TYL2 PO (09:00)
[2020-04-26] MEDS ORDERED: CEPH500B PO (09:00)
== END 2020-04-26 10:05 | disposition home or self-care (01) ==
LOC: DAH 06:02
PROVIDERS: ATTEND Orthopaedic Surgery
DX: G56.03 Carpal tunnel syndrome, bilateral upper limbs (principal); I10 Essential (primary) hypertension; E11.40 Type 2 diabetes mellitus with diabetic neuropathy, unspecified; J45.909 Unspecified asthma, uncomplicated; F32.9 Major depressive disorder, single episode, unspecified; E78.5 Hyperlipidemia, unspecified; K21.9 Gastro-esophageal reflux disease without esophagitis; Z98.891 History of uterine scar from previous surgery; Z90.710 Acquired absence of both cervix and uterus; Z87.891 Personal history of nicotine dependence; Z11.59 Encounter for screening for other viral diseases; Z98.890 Other specified postprocedural states; Z88.8 Allergy status to other drugs, medicaments and biological substances; Z82.49 Family history of ischemic heart disease and other diseases of the circulatory system; Z83.3 Family history of diabetes mellitus; Z80.9 Family history of malignant neoplasm, unspecified; Z79.82 Long term (current) use of aspirin; Z79.51 Long term (current) use of inhaled steroids
CPT/HCPCS: 36415; 64721; 80048; 82948 ×2; 85025; A4215; A4221; A4222; A4223; A4565; A4649; A4663; A4930 ×2; A6223; A6260; C9803; J0690 ×2; J2250; J3010; J3490 ×2; J7030; U0003

== ENCOUNTER → 2020-05-30 | Outpatient (CLI) | payer OTHER ==
[~2020-05-30] MED LIST changes: +CEPH500B PO; +TYL2 PO
[2020-05-30 14:25] LABS: BASOPHILS % (AUTO) 0.5 % (0.0-5.0); EOSINOPHILS % (AUTO) 1.8 % (0.0-8.0); HEMATOCRIT 39.6 % (36-48); LYMPHOCYTES % (AUTO) 23.8 % (21.0-51.0); MEAN CORPUSCULAR HEMOGLOBIN 28.2 pg (27.0-33.0); MEAN CORPUSCULAR HGB CONC 32.6 g/dL (32.0-36.0); MEAN CORPUSCULAR VOLUME 86.5 fL (79-99); MONOCYTES % (AUTO) 4.9 % (3.0-13.0); NEUTROPHILS % (AUTO) 68.4 % (40.0-77.0); PLATELET COUNT (AUTO) 306 K/uL (130-400); RED BLOOD CELL COUNT(AUTO) 4.58 MIL/uL (4.00-5.50); RED CELL DISTRIBUTION WIDTH 13.6 % (11.0-15.5); WHITE BLOOD COUNT (AUTO) 11.2 K/uL (4.8-10.8)
[2020-05-30 14:32] LABS: HEMOGLOBIN A1C 6.8 % (4.0-6.0)
[2020-05-30 15:01] LABS: ALBUMIN 3.8 g/dL (3.5-5.0); BILIRUBIN,TOTAL 0.5 mg/dL (0.2-1.0); CREATININE 0.9 mg/dL (0.5-1.5); TOTAL PROTEIN, SERUM 8.1 g/dL (6.0-8.3); URIC ACID 5.2 mg/dL (2.6-7.2)
[2020-05-30 15:31] LABS: ERYTHROCYTE SEDIMENTATION RATE 30 MM/HR (0-30)
== END | disposition home or self-care (01) ==
LOC: LAB 13:35
PROVIDERS: ATTEND Internal Medicine
DX: E11.69 Type 2 diabetes mellitus with other specified complication (principal); G56.03 Carpal tunnel syndrome, bilateral upper limbs; F31.76 Bipolar disorder, in full remission, most recent episode depressed
CPT/HCPCS: 36415; 80053; 82607; 83036; 84550; 85025; 85651; 86038; 86140; 86215; 86235

== ENCOUNTER → 2020-05-31 | Outpatient (CLI) | payer OTHER | END | disposition home or self-care (01) | LOC: RAH 11:20 | PROVIDERS: ATTEND Internal Medicine | DX: J45.909 Unspecified asthma, uncomplicated (principal); M47.814 Spondylosis without myelopathy or radiculopathy, thoracic region | CPT/HCPCS: 71046 ==

== ENCOUNTER 2020-06-12 06:10 | Day surgery (SDC) | payer OTHER ==
[2020-06-05 09:21] LABS: BASOPHILS % (AUTO) 0.3 % (0.0-5.0); EOSINOPHILS % (AUTO) 0.8 % (0.0-8.0); HEMATOCRIT 40.1 % (36-48); LYMPHOCYTES % (AUTO) 19.2 % (21.0-51.0); MEAN CORPUSCULAR HEMOGLOBIN 28.1 pg (27.0-33.0); MEAN CORPUSCULAR HGB CONC 32.4 g/dL (32.0-36.0); MEAN CORPUSCULAR VOLUME 86.8 fL (79-99); MONOCYTES % (AUTO) 4.7 % (3.0-13.0); NEUTROPHILS % (AUTO) 74.2 % (40.0-77.0); PLATELET COUNT (AUTO) 344 K/uL (130-400); RED BLOOD CELL COUNT(AUTO) 4.62 MIL/uL (4.00-5.50); RED CELL DISTRIBUTION WIDTH 13.7 % (11.0-15.5); WHITE BLOOD COUNT (AUTO) 19.2 K/uL (4.8-10.8)
[2020-06-05 09:28] LABS: POTASSIUM 3.9 mmol/L (3.5-5.1)
--- NOTE | 2020-06-09 09:46 | NUR ---
abnormal lab: DR. NICHOLAS MADE AWARE OF WBC 19.2, BUN 26, AND CREATINE 2.0. TEMP. 97.4 DAY OF LAB DRAWN, ORDERS GIVEN.
[2020-06-09 09:53] VITALS: BP 127/69
[~2020-06-12] VITALS: Ht 152.4 cm; Wt 79.8 kg
[2020-06-12] VITALS (18 sets, daily range): BP systolic 101–152; BP diastolic 60–84
[~2020-06-12 06:10] MED LIST changes: -DULA1.5P SQ; +INSLAN SQ
[2020-06-12] MEDS ORDERED: SODIUM CHLORIDE 0.9% 1000ML 1,000 ML IV ONE (06:55)
[2020-06-12] MEDS ORDERED: CEFAZOLIN SODIUM 1 GM VIAL ONE (07:13)
[2020-06-12] MEDS: CEFAZOLIN SODIUM 1 GM VIAL ONE ×2 (07:15→08:10)
[2020-06-12 07:16] LABS: BASOPHILS % (AUTO) 0.3 % (0.0-5.0); EOSINOPHILS % (AUTO) 0.6 % (0.0-8.0); HEMATOCRIT 34.3 % (36-48); LYMPHOCYTES % (AUTO) 30.3 % (21.0-51.0); MEAN CORPUSCULAR HGB CONC 32.1 g/dL (32.0-36.0); MEAN CORPUSCULAR VOLUME 87.3 fL (79-99); MONOCYTES % (AUTO) 6.3 % (3.0-13.0); NEUTROPHILS % (AUTO) 60.5 % (40.0-77.0); PLATELET COUNT (AUTO) 303 K/uL (130-400); RED BLOOD CELL COUNT(AUTO) 3.93 MIL/uL (4.00-5.50); RED CELL DISTRIBUTION WIDTH 14.3 % (11.0-15.5); WHITE BLOOD COUNT (AUTO) 19.9 K/uL (4.8-10.8)
--- NOTE | 2020-06-12 07:20 | NUR ---
abnormal lab: dr. yanez notified of wbc 19.9, asymptomatic, ok to proceed with surgery
[2020-06-12] MEDS ORDERED: METHYLPREDNISOLONE SOD SUCC 40MG/ML 1ML ONE (07:36)
[2020-06-12 07:38] LABS: EOSINOPHILS % (MANUAL) 1 % (1-6); LYMPHOCYTES % (MANUAL) 43 % (22-44); MONOCYTES % (MANUAL) 4 % (2-9); SEGMENTED NEUTROPHILS % 52 % (40-70)
[2020-06-12 07:39] LABS: MAN.DIFF COMMENT-IMPRESSION MANUAL DIFFERENTIAL; PLATELET MORPHOLOGY COMMENT ADEQUATE
[2020-06-12] MEDS ORDERED: LIDOCAINE PF 2% 5ML ABBOJECT ONE (07:51)
[2020-06-12] MEDS ORDERED: PROPOFOL 10 MG/ML 20ML VIAL IV ONE (07:52)
[2020-06-12] MEDS ORDERED: FENTANYL CITRATE PF 50 MCG/1 ML 2ML VIAL ONE (07:52)
[2020-06-12] MEDS ORDERED: MIDAZOLAM HCL 1 MG/ML 2ML VIAL ONE ×2 (07:52→07:56)
[2020-06-12] MEDS ORDERED: DEXAMETHASONE SOD PHOSPHATE 10MG/ML 1ML VIAL ONE (07:52)
[2020-06-12] MEDS ORDERED: ONDANSETRON HCL 4 MG/2 ML VIAL ONE (07:52)
[2020-06-12] MEDS ORDERED: DURAMORPH PF1 MG/ML 10ML AMP IV ONE (08:00)
[2020-06-12] MEDS ORDERED: BUPIVACAINE/PF 0.25% 30ML VIAL IJ ONE (08:31)
[2020-06-12] MEDS ORDERED: PHENYLEPHRINE HCL 10 MG/ML 1ML VIAL IV ONE (08:37)
[2020-06-12] MEDS ORDERED: KETOROLAC TROMETHAMINE 30MG/ML ONE (08:58)
[2020-06-12] MEDS ORDERED: ACET1TAB25 PO (09:19)
[2020-06-12] MEDS ORDERED: CEPH500B PO (09:19)
[2020-06-12] MEDS ORDERED: MEPERIDINE-PF 25 MG/ML SYG ONE ×2 (09:40→09:48)
--- NOTE | 2020-06-12 10:25 | NUR ---
Pt received Pt received from PACU accompanied by Adama RN via stretcher. Pt AAOx3 but drowsy. Talkative. Has mary wrap to left arm. Good capillary refill noted to left fingers. Dressing dry and intact. Denies any complaints. Sling to left arm applied.
--- NOTE | 2020-06-12 11:00 | NUR ---
D/C Pt prepared for discharge. Spoke to and discharge instructions were given with follow up appointment date and time. Also given to pt. Copies of instructions were given to pt. and pt verbalized understanding of instructions. All questions answered. Called [facility] pharmacy and confirmed rx were received. Pt denies any pain. Pt then taken out of facility via w/c. Very appreciative.
== END 2020-06-12 11:15 ==
LOC: DAH 06:10
PROVIDERS: ATTEND Orthopaedic Surgery
DX: G56.02 Carpal tunnel syndrome, left upper limb (principal); R29.898 Other symptoms and signs involving the musculoskeletal system; I10 Essential (primary) hypertension; J45.909 Unspecified asthma, uncomplicated; E11.9 Type 2 diabetes mellitus without complications; F32.9 Major depressive disorder, single episode, unspecified; Z90.710 Acquired absence of both cervix and uterus; Z79.899 Other long term (current) drug therapy; Z98.890 Other specified postprocedural states; Z20.828 Contact with and (suspected) exposure to other viral communicable diseases
CPT/HCPCS: 36415 ×2; 64721; 80048; 82948 ×2; 85025 ×2; A4213; A4215; A4221; A4222; A4223; A4649; A4663; A4930; A6223; C9803; J0690 ×2; J1100; J1885; J2001; J2175 ×2; J2250 ×2; J2274; J2370; J2405; J2704; J2920; J3010; J3490; J7030 ×2; U0003

== ENCOUNTER → 2020-06-22 | Outpatient (CLI) | payer OTHER ==
[~2020-06-22] MED LIST changes: -ACET-66 PO; +ACET1TAB25 PO; -TYL2 PO
[2020-06-22 16:55] LABS: BASOPHILS % (AUTO) 0.3 % (0.0-5.0); EOSINOPHILS % (AUTO) 1.3 % (0.0-8.0); HEMATOCRIT 36.2 % (36-48); LYMPHOCYTES % (AUTO) 26.1 % (21.0-51.0); MEAN CORPUSCULAR HEMOGLOBIN 28.2 pg (27.0-33.0); MEAN CORPUSCULAR HGB CONC 32.3 g/dL (32.0-36.0); MEAN CORPUSCULAR VOLUME 87.2 fL (79-99); MONOCYTES % (AUTO) 5.2 % (3.0-13.0); NEUTROPHILS % (AUTO) 66.3 % (40.0-77.0); PLATELET COUNT (AUTO) 267 K/uL (130-400); RED BLOOD CELL COUNT(AUTO) 4.15 MIL/uL (4.00-5.50); RED CELL DISTRIBUTION WIDTH 14.6 % (11.0-15.5); WHITE BLOOD COUNT (AUTO) 15.9 K/uL (4.8-10.8)
[2020-06-22 17:06] LABS: ALANINE AMINOTRANSFERASE 45 U/L (12-78); ALBUMIN 3.6 g/dL (3.5-5.0); ASPARTATE AMINOTRANSFERASE 12 U/L (10-37); BILIRUBIN,TOTAL 0.3 mg/dL (0.2-1.0); CARBON DIOXIDE 22 mmol/L (21-32); CHLORIDE 103 mmol/L (101-111); CREATININE 1.3 mg/dL (0.5-1.5); GLOMERULAR FILTR. RATE CALC 45 mL/min (>60); GLUCOSE,RANDOM 174 mg/dL (70-105); LACTATE DEHYDROGENASE 132 U/L (81-234); POTASSIUM 4.2 mmol/L (3.5-5.1); SODIUM SERUM 138 mmol/L (136-145); TOTAL PROTEIN, SERUM 7.2 g/dL (6.0-8.3); UREA NITROGEN, BLOOD 33 mg/dL (7-18)
[2020-06-22 18:09] LABS: ERYTHROCYTE SEDIMENTATION RATE 24 MM/HR (0-30)
== END | disposition home or self-care (01) ==
LOC: LAB 15:58
PROVIDERS: ATTEND Internal Medicine
DX: R05 Cough (principal)
CPT/HCPCS: 36415; 71046; 80053; 82728; 83615; 84145; 85025; 85378; 85651; 86140

== ENCOUNTER → 2020-08-28 | Outpatient (CLI) | payer OTHER ==
[~2020-08-28] MED LIST changes: -MONT10TA26 PO; +MONT10TA96 PO
[2020-08-28 11:36] LABS: BASOPHILS % (AUTO) 0.3 % (0.0-5.0); EOSINOPHILS % (AUTO) 1.9 % (0.0-8.0); HEMATOCRIT 36.7 % (36-48); LYMPHOCYTES % (AUTO) 19.7 % (21.0-51.0); MEAN CORPUSCULAR HEMOGLOBIN 27.6 pg (27.0-33.0); MEAN CORPUSCULAR HGB CONC 32.7 g/dL (32.0-36.0); MEAN CORPUSCULAR VOLUME 84.6 fL (79-99); MONOCYTES % (AUTO) 5.3 % (3.0-13.0); NEUTROPHILS % (AUTO) 72.1 % (40.0-77.0); PLATELET COUNT (AUTO) 297 K/uL (130-400); RED BLOOD CELL COUNT(AUTO) 4.34 MIL/uL (4.00-5.50); RED CELL DISTRIBUTION WIDTH 13.1 % (11.0-15.5); WHITE BLOOD COUNT (AUTO) 12.2 K/uL (4.8-10.8)
== END | disposition home or self-care (01) ==
LOC: LAB 10:05
PROVIDERS: ATTEND Internal Medicine
DX: I10 Essential (primary) hypertension (principal); G44.209 Tension-type headache, unspecified, not intractable; R07.9 Chest pain, unspecified
CPT/HCPCS: 36415; 85025

== ENCOUNTER → 2020-11-07 | Outpatient (CLI) | payer OTHER ==
[~2020-11-07] MED LIST changes: +MONT10TA32 PO; -MONT10TA96 PO
[2020-11-07 11:50] LABS: APPEARANCE,URINE CLEAR (CLEAR); BILIRUBIN,URINE NEGATIVE (NEGATIVE); COLOR,URINE YELLOW (YELLOW); GLUCOSE, URINE (UA) NEGATIVE (NEGATIVE); KETONES,URINE NEGATIVE (NEGATIVE); LEUKOCYTE ESTERASE ,URINE SMALL (NEGATIVE); NITRATE,URINE NEGATIVE (NEGATIVE); OCCULT BLOOD,URINE NEGATIVE (NEGATIVE); PH,URINE 5.5 (5.0-8.0); PROTEIN,URINE NEGATIVE (NEGATIVE); UROBILINOGEN,URINE 0.2 mg/dL (0.2-1.0)
[2020-11-07 11:53] LABS: BASOPHILS % (AUTO) 0.5 % (0.0-5.0); EOSINOPHILS % (AUTO) 1.7 % (0.0-8.0); HEMATOCRIT 38.2 % (36-48); LYMPHOCYTES % (AUTO) 18.3 % (21.0-51.0); MEAN CORPUSCULAR HEMOGLOBIN 27.8 pg (27.0-33.0); MEAN CORPUSCULAR HGB CONC 32.2 g/dL (32.0-36.0); MEAN CORPUSCULAR VOLUME 86.4 fL (79-99); MONOCYTES % (AUTO) 2.9 % (3.0-13.0); NEUTROPHILS % (AUTO) 76.2 % (40.0-77.0); PLATELET COUNT (AUTO) 348 K/uL (130-400); RED BLOOD CELL COUNT(AUTO) 4.42 MIL/uL (4.00-5.50); RED CELL DISTRIBUTION WIDTH 13.4 % (11.0-15.5); WHITE BLOOD COUNT (AUTO) 16.1 K/uL (4.8-10.8)
[2020-11-07 12:08] LABS: BACTERIA,URINE Rare /HPF (None Seen); RBC,URINE 0-1 /HPF (0-1); SQUAMOUS EPITHELIAL CELL,UR 0-2 /HPF (0-2); WBC,URINE 0-1 /HPF (0-1)
[2020-11-07 12:09] LABS: HEMOGLOBIN A1C 6.9 % (4.0-6.0)
[2020-11-07 12:16] LABS: B-TYPE NATRIURETIC PEPTIDE < 5 pg/mL (0-100)
[2020-11-07 12:36] LABS: ALANINE AMINOTRANSFERASE 49 U/L (12-78); ASPARTATE AMINOTRANSFERASE 26 U/L (10-37); BILIRUBIN,DIRECT < 0.1 mg/dL (0.0-0.3); BILIRUBIN,TOTAL 0.3 mg/dL (0.2-1.0); CARBON DIOXIDE 25 mmol/L (21-32); CHLORIDE 101 mmol/L (101-111); CHOLESTEROL 171 mg/dL (<200); CREATININE 0.9 mg/dL (0.5-1.5); GLOMERULAR FILTR. RATE CALC 69 mL/min (>60); GLUCOSE,RANDOM 132 mg/dL (70-105); HDL CHOLESTEROL 37 mg/dL (35-85); LDL DIRECT 86 mg/dL (0-99); POTASSIUM 3.9 mmol/L (3.5-5.1); SODIUM SERUM 138 mmol/L (136-145); THYROID STIMULATING HORMONE 3.61 uIU/mL (0.36-3.74); TOTAL PROTEIN, SERUM 8.1 g/dL (6.0-8.3); TRIGLYCERIDES 416 mg/dL (30-200); UREA NITROGEN, BLOOD 16 mg/dL (7-18)
== END | disposition home or self-care (01) ==
LOC: LAB 10:49
PROVIDERS: ATTEND Internal Medicine
DX: E11.69 Type 2 diabetes mellitus with other specified complication (principal); I10 Essential (primary) hypertension; G43.919 Migraine, unspecified, intractable, without status migrainosus; H81.10 Benign paroxysmal vertigo, unspecified ear; Z20.828 Contact with and (suspected) exposure to other viral communicable diseases
CPT/HCPCS: 36415; 80053; 80061; 80076; 81001; 82043; 82306; 82607; 83036; 83880; 84443; 85025; 85378; 87088

== ENCOUNTER → 2020-11-10 | Outpatient (CLI) | payer OTHER | END | disposition home or self-care (01) | LOC: RAH 08:15 | PROVIDERS: ATTEND Internal Medicine | DX: R06.02 Shortness of breath (principal); M47.814 Spondylosis without myelopathy or radiculopathy, thoracic region | CPT/HCPCS: 71046 ==

== ENCOUNTER → 2021-01-10 | Outpatient (CLI) | payer OTHER ==
[2021-01-10 14:54] LABS: BASOPHILS % (AUTO) 0.3 % (0.0-5.0); EOSINOPHILS % (AUTO) 2.6 % (0.0-8.0); MEAN CORPUSCULAR HEMOGLOBIN 27.4 pg (27.0-33.0); MEAN CORPUSCULAR HGB CONC 31.9 g/dL (32.0-36.0); MEAN CORPUSCULAR VOLUME 85.7 fL (79-99); MONOCYTES % (AUTO) 5.3 % (3.0-13.0); NEUTROPHILS % (AUTO) 71.1 % (40.0-77.0); PLATELET COUNT (AUTO) 270 K/uL (130-400); RED CELL DISTRIBUTION WIDTH 13.3 % (11.0-15.5); WHITE BLOOD COUNT (AUTO) 12.1 K/uL (4.8-10.8)
[2021-01-10 15:05] LABS: HEMOGLOBIN A1C 7.1 % (4.0-6.0)
[2021-01-10 15:37] LABS: ALBUMIN 3.7 g/dL (3.5-5.0); BILIRUBIN,TOTAL 0.3 mg/dL (0.2-1.0); CREATININE 0.8 mg/dL (0.5-1.5); POTASSIUM 3.6 mmol/L (3.5-5.1); THYROID STIMULATING HORMONE 2.98 uIU/mL (0.36-3.74); TOTAL PROTEIN, SERUM 7.3 g/dL (6.0-8.3)
== END | disposition home or self-care (01) ==
LOC: LAB 13:09
PROVIDERS: ATTEND Internal Medicine
DX: H65.23 Chronic serous otitis media, bilateral (principal); H81.10 Benign paroxysmal vertigo, unspecified ear; I10 Essential (primary) hypertension; R07.9 Chest pain, unspecified; R10.13 Epigastric pain
CPT/HCPCS: 36415; 80053; 82306; 82607; 83036; 83690; 84443; 84484; 85025; 86677

== ENCOUNTER → 2021-01-15 | Outpatient (CLI) | payer OTHER ==
[2021-01-15 10:43] LABS: BASOPHILS % (AUTO) 0.4 % (0.0-5.0); EOSINOPHILS % (AUTO) 2.1 % (0.0-8.0); HEMATOCRIT 36.2 % (36-48); LYMPHOCYTES % (AUTO) 22.1 % (21.0-51.0); MEAN CORPUSCULAR VOLUME 87.2 fL (79-99); MONOCYTES % (AUTO) 4.6 % (3.0-13.0); PLATELET COUNT (AUTO) 266 K/uL (130-400); RED BLOOD CELL COUNT(AUTO) 4.15 MIL/uL (4.00-5.50); RED CELL DISTRIBUTION WIDTH 13.4 % (11.0-15.5); WHITE BLOOD COUNT (AUTO) 10.7 K/uL (4.8-10.8)
[2021-01-15 11:00] LABS: ALBUMIN 3.8 g/dL (3.5-5.0); BILIRUBIN,TOTAL 0.3 mg/dL (0.2-1.0); CREATININE 0.9 mg/dL (0.5-1.5); POTASSIUM 4.2 mmol/L (3.5-5.1); TOTAL PROTEIN, SERUM 7.5 g/dL (6.0-8.3)
== END | disposition home or self-care (01) ==
LOC: LAB 09:44
PROVIDERS: ATTEND Internal Medicine
DX: F31.60 Bipolar disorder, current episode mixed, unspecified (principal); H81.10 Benign paroxysmal vertigo, unspecified ear; I10 Essential (primary) hypertension; K85.90 Acute pancreatitis without necrosis or infection, unspecified; R10.13 Epigastric pain
CPT/HCPCS: 36415; 80053; 82150; 83690; 85025

== ENCOUNTER 2021-01-27 08:46 | Emergency (ER) | payer OTHER ==
[2021-01-27 09:51] LABS: BASOPHILS % (AUTO) 0.2 % (0.0-5.0); EOSINOPHILS % (AUTO) 0.6 % (0.0-8.0); HEMATOCRIT 35.7 % (36-48); LYMPHOCYTES % (AUTO) 20.5 % (21.0-51.0); MEAN CORPUSCULAR HEMOGLOBIN 28.2 pg (27.0-33.0); MEAN CORPUSCULAR HGB CONC 32.8 g/dL (32.0-36.0); MONOCYTES % (AUTO) 5.7 % (3.0-13.0); PLATELET COUNT (AUTO) 358 K/uL (130-400); RED BLOOD CELL COUNT(AUTO) 4.15 MIL/uL (4.00-5.50); RED CELL DISTRIBUTION WIDTH 13.8 % (11.0-15.5); WHITE BLOOD COUNT (AUTO) 18.7 K/uL (4.8-10.8)
[2021-01-27 10:17] LABS: CREATININE 0.8 mg/dL (0.5-1.5); POTASSIUM 4.4 mmol/L (3.5-5.1)
[2021-01-27 11:21] LABS: ERYTHROCYTE SEDIMENTATION RATE 24 MM/HR (0-30)
== END 2021-01-27 12:05 | disposition home or self-care (01) ==
LOC: EDH 08:46
DX: M25.562 Pain in left knee (principal); I10 Essential (primary) hypertension; E78.5 Hyperlipidemia, unspecified; F32.9 Major depressive disorder, single episode, unspecified; Z88.8 Allergy status to other drugs, medicaments and biological substances; Z90.49 Acquired absence of other specified parts of digestive tract; Z98.890 Other specified postprocedural states
CPT/HCPCS: 36415; 73562; 80048; 84145; 84550; 85025; 85651; 86140

== ENCOUNTER 2021-02-14 06:28 | Day surgery (SDC) | payer OTHER ==
[2021-02-09 11:01] LABS: BASOPHILS % (AUTO) 0.3 % (0.0-5.0); EOSINOPHILS % (AUTO) 1.9 % (0.0-8.0); HEMATOCRIT 37.7 % (36-48); LYMPHOCYTES % (AUTO) 17.7 % (21.0-51.0); MEAN CORPUSCULAR HEMOGLOBIN 28.3 pg (27.0-33.0); MEAN CORPUSCULAR HGB CONC 32.4 g/dL (32.0-36.0); MEAN CORPUSCULAR VOLUME 87.5 fL (79-99); NEUTROPHILS % (AUTO) 75.5 % (40.0-77.0); PLATELET COUNT (AUTO) 234 K/uL (130-400); RED BLOOD CELL COUNT(AUTO) 4.31 MIL/uL (4.00-5.50); RED CELL DISTRIBUTION WIDTH 13.5 % (11.0-15.5); WHITE BLOOD COUNT (AUTO) 14.7 K/uL (4.8-10.8)
[2021-02-09 11:08] LABS: CREATININE 0.8 mg/dL (0.5-1.5); POTASSIUM 4.3 mmol/L (3.5-5.1)
[2021-02-13 09:17] VITALS: BP 156/79
[~2021-02-14] VITALS: Ht 154.9 cm; Wt 79.9 kg
[2021-02-14] VITALS (17 sets, daily range): BP systolic 133–156; BP diastolic 68–88
[~2021-02-14 06:28] MED LIST changes: -ACET1TAB25 PO; -CALCIUM PO; +CEFAZOLIN SODIUM 1 GM VIAL IVP SCH; -CEPH500B PO; -CETI10TA57 PO; -FAMO-136 PO; -FLAXSEED OIL PO; +GABA-529 PO; +GLIM4TAB36 PO; -HYDR25TA PO; -INSLAN SQ; +ISOS30TA92 PO; -L. A1CAP9 PO; +MELO15TA12 PO; +METF-444 PO; +MONT10TA21 PO; +NITR0.4T50 SL; -OMEGA PO; -QUET100T33 PO; +QUET25TA34 PO; -TRAZ-187 PO; +TYLENOL ARTHRITIS PO; -[UNRECOGNIZED DRUG - OTHER] PO
[2021-02-14] MEDS ORDERED: SODIUM CHLORIDE 0.9% 1000ML 1,000 ML IV ONE (07:01)
[2021-02-14] MEDS ORDERED: TRAZ150T79 PO (07:28)
[2021-02-14] MEDS ORDERED: CETI10CA5 PO (07:28)
[2021-02-14] MEDS ORDERED: LIDOCAINE PF 100MG/5ML (2%) SYRINGE 5ML ONE (07:58)
[2021-02-14] MEDS ORDERED: PROPOFOL 10 MG/ML 20ML VIAL IV ONE (07:58)
[2021-02-14] MEDS ORDERED: SUCCINYLCHOLINE CHLORIDE 20 MG/ML 10 ML VIAL ONE (07:58)
[2021-02-14] MEDS ORDERED: ROCURONIUM 10MG/1ML SYR 10 MG/ML ML ONE (07:58)
[2021-02-14] MEDS ORDERED: FENTANYL CITRATE PF 50 MCG/1 ML 2ML VIAL ONE (07:59)
[2021-02-14] MEDS ORDERED: MIDAZOLAM HCL 1 MG/ML 2ML VIAL ONE (08:00)
[2021-02-14] MEDS ORDERED: ALBUTEROL INHALER 90MCG/INH IH ONE (08:02)
[2021-02-14] MEDS ORDERED: KETAMINE 50MG/ML SYRINGE 50 MG/ML DISP.SYRIN IV ONE (08:04)
[2021-02-14] MEDS ORDERED: DEXAMETHASONE SOD PHOSPHATE 10MG/ML 1ML VIAL ONE (08:39)
[2021-02-14] MEDS ORDERED: PHENYLEPHRINE HCL 10 MG/ML 1ML VIAL IV ONE (08:47)
[2021-02-14] MEDS ORDERED: EPHEDRINE SULFATE 50 MG/ML AMPULE ONE (08:54)
[2021-02-14] MEDS ORDERED: ONDANSETRON HCL 4 MG/2 ML VIAL ONE (09:11)
[2021-02-14] MEDS ORDERED: GLYCOPYRROLATE 1 MG/5 ML SYRINGE ONE (09:11)
[2021-02-14] MEDS ORDERED: NEOSTIGMINE 5MG/5ML SYR IV ONE (09:11)
[2021-02-14] MEDS ORDERED: SUGAMMADEX SODIUM 200 MG/2 ML VIAL IV ONE (09:16)
[2021-02-14] MEDS ORDERED: CEPH500B PO (09:20)
[2021-02-14] MEDS ORDERED: ACET1TAB25 PO (09:20)
[2021-02-14] MEDS ORDERED: MEPERIDINE-PF 25 MG/ML SYG ONE (09:50)
[2021-02-14] MEDS ORDERED: ACETAMINOPHEN-CODEINE 300/30MG TAB ONE (10:46)
[2021-02-14] MEDS ORDERED: ACETAMINOPHEN-CODEINE 300/30MG TAB PO SCH (11:00)
== END 2021-02-14 11:20 | disposition home or self-care (01) ==
LOC: DAH 06:28
PROVIDERS: ATTEND Orthopaedic Surgery
DX: S83.232A Complex tear of medial meniscus, current injury, left knee, initial encounter (principal); Z20.822 Contact with and (suspected) exposure to COVID-19; M94.262 Chondromalacia, left knee; M25.462 Effusion, left knee; J45.909 Unspecified asthma, uncomplicated; I10 Essential (primary) hypertension; E78.5 Hyperlipidemia, unspecified; I25.2 Old myocardial infarction; E11.9 Type 2 diabetes mellitus without complications; I25.10 Atherosclerotic heart disease of native coronary artery without angina pectoris; F31.9 Bipolar disorder, unspecified; Z90.710 Acquired absence of both cervix and uterus; Z79.82 Long term (current) use of aspirin; Z79.4 Long term (current) use of insulin; Z83.3 Family history of diabetes mellitus; Z82.49 Family history of ischemic heart disease and other diseases of the circulatory system; Z98.890 Other specified postprocedural states; Z87.891 Personal history of nicotine dependence; Z98.891 History of uterine scar from previous surgery; Z79.899 Other long term (current) drug therapy
CPT/HCPCS: 29881; 36415; 80048; 82948 ×2; 85025; 87635; A4215; A4216; A4221; A4222; A4223 ×3; A4606 ×2; A4649 ×2; A4663; A4930; A5120; A6223; C9803; J0330; J0690; J1100; J2001; J2175; J2250; J2370; J2405; J2704; J2710; J3010; J3490 ×2; J7030; J7120

== ENCOUNTER → 2021-09-28 | Outpatient (CLI) | payer OTHER ==
[~2021-09-28] MED LIST changes: +ACET1TAB25 PO; -CEFAZOLIN SODIUM 1 GM VIAL IVP SCH; +CEPH500B PO; +CETI10CA5 PO; -FLUT1DIS3 IH; -ICOS1CAP PO; -MELO15TA12 PO; +MONT-39 PO; -MONT10TA21 PO; -MONT10TA32 PO; -QUET25TA34 PO; +QUET25TA36 PO; +TRAZ150T79 PO
== END | disposition home or self-care (01) ==
LOC: RAH 08:43
PROVIDERS: ATTEND Internal Medicine
DX: Z12.31 Encounter for screening mammogram for malignant neoplasm of breast (principal)
CPT/HCPCS: 77067

== ENCOUNTER → 2021-10-08 | Outpatient (CLI) | payer OTHER | END | disposition home or self-care (01) | LOC: ICE 07:44 | PROVIDERS: ATTEND Internal Medicine Cardiovascular Disease | DX: Z20.822 Contact with and (suspected) exposure to COVID-19 (principal) | CPT/HCPCS: 87635; C9803 ==

== ENCOUNTER 2021-12-09 18:11 | Emergency (ER) | payer OTHER ==
[~2021-12-09] VITALS: Ht 152.4 cm; Wt 79.8 kg
[~2021-12-09 18:11] MED LIST changes: +ACET-2079 PO; -ACET1TAB25 PO
[2021-12-09] MEDS ORDERED: 0.9%NACL 1000ML 1,000 ML IV ONE ×2 (18:30→19:00)
[2021-12-09 18:57] LABS: BASOPHILS % (AUTO) 0.4 % (0.0-5.0); EOSINOPHILS % (AUTO) 0.9 % (0.0-8.0); HEMATOCRIT 37.6 % (36-48); LYMPHOCYTES % (AUTO) 11.4 % (21.0-51.0); MEAN CORPUSCULAR HGB CONC 32.2 g/dL (32.0-36.0); MEAN CORPUSCULAR VOLUME 83.9 fL (79-99); MONOCYTES % (AUTO) 1.7 % (3.0-13.0); NEUTROPHILS % (AUTO) 84.5 % (40.0-77.0); PLATELET COUNT (AUTO) 256 K/uL (130-400); RED BLOOD CELL COUNT(AUTO) 4.48 MIL/uL (4.00-5.50); RED CELL DISTRIBUTION WIDTH 13.1 % (11.0-15.5); WHITE BLOOD COUNT (AUTO) 14.9 K/uL (4.8-10.8)
[2021-12-09 18:58] LABS: APPEARANCE,URINE Clear (CLEAR); BILIRUBIN,URINE Negative (NEGATIVE); COLOR,URINE Yellow (YELLOW); GLUCOSE, URINE (UA) Negative (NEGATIVE); KETONES,URINE Negative (NEGATIVE); LEUKOCYTE ESTERASE ,URINE Negative (NEGATIVE); NITRATE,URINE Negative (NEGATIVE); OCCULT BLOOD,URINE Nonhemolyzed Trace (NEGATIVE); PH,URINE 5.5 (5.0-8.0); PROTEIN,URINE Negative (NEGATIVE); UROBILINOGEN,URINE 0.2 mg/dL (0.2-1.0)
[2021-12-09] MEDS ORDERED: MORPHINE 4 MG SYG IVP ONE (19:00)
[2021-12-09] MEDS ORDERED: FAMOTIDINE 20MG VIAL IV ONE ×2 (19:00→19:12)
[2021-12-09] MEDS ORDERED: ONDANSETRON 4MG INJ IVP ONE (19:00)
[2021-12-09] MEDS ORDERED: KETOROLAC 15MG/ML VIAL (15MG/ML) IV ONE (19:00)
[2021-12-09 19:04] LABS: BACTERIA,URINE Few /HPF (None Seen); MUCUS,URINE Few LPF (None Seen); SQUAMOUS EPITHELIAL CELL,UR Rare /HPF (0-2); WBC,URINE 0-1 /HPF (0-1)
[2021-12-09] MEDS ORDERED: MORPHINE 4 MG SYG ONE (19:12)
[2021-12-09] MEDS ORDERED: KETOROLAC 15MG/ML VIAL (15MG/ML) ONE (19:12)
[2021-12-09] MEDS ORDERED: ONDANSETRON 4MG INJ ONE (19:12)
[2021-12-09 19:13] LABS: CREATININE 0.8 mg/dL (0.5-1.5); POTASSIUM 4.4 mmol/L (3.5-5.1)
[2021-12-09 19:17] LABS: ALBUMIN 3.8 g/dL (3.5-5.0); BILIRUBIN,TOTAL 0.3 mg/dL (0.2-1.0); TOTAL PROTEIN, SERUM 7.9 g/dL (6.0-8.3)
[2021-12-09 19:53] LABS: PARTIAL THROMBOPLASTIN TIME 26.4 SEC (26.3-35.5)
[2021-12-09] MEDS ORDERED: IOHEXOL-350 75 ML VIAL IV ONE (20:50)
[2021-12-09] MEDS ORDERED: MORPHINE 2 MG SYG IVP ONE (21:00)
[2021-12-09 21:32] LABS: INR 0.98 (0.85-1.15); PROTHROMBIN TIME 10.2 SEC (9.6-11.6)
[2021-12-09] MEDS ORDERED: TRAM50TA2 PO (22:00)
[2021-12-09] MEDS ORDERED: DICY20TA2 PO (22:00)
[2021-12-09] MEDS ORDERED: ONDA4TAB10 PO (22:00)
[2021-12-09 22:03] VITALS: BP 143/85
== END 2021-12-09 22:14 | disposition home or self-care (01) ==
LOC: EDH 18:11
DX: M54.41 Lumbago with sciatica, right side (principal); K52.9 Noninfective gastroenteritis and colitis, unspecified; E78.00 Pure hypercholesterolemia, unspecified; F32.A Depression, unspecified; I10 Essential (primary) hypertension; J45.909 Unspecified asthma, uncomplicated; Z88.1 Allergy status to other antibiotic agents; Z90.49 Acquired absence of other specified parts of digestive tract; Z90.710 Acquired absence of both cervix and uterus; Z79.1 Long term (current) use of non-steroidal anti-inflammatories (NSAID); Z79.82 Long term (current) use of aspirin; Z79.84 Long term (current) use of oral hypoglycemic drugs; Z79.899 Other long term (current) drug therapy
CPT/HCPCS: 36415; 74177; 80053; 81001; 83690; 85025; 85610; 85730; 93971; 96361; 96374; 96375; 96376; 99285; J1885; J2270; J2405; J3490; J7030; Q9967

== ENCOUNTER 2021-12-27 05:54 | Day surgery (SDC) | payer OTHER ==
[2021-12-26 12:33] LABS: BASOPHILS % (AUTO) 0.4 % (0.0-5.0); EOSINOPHILS % (AUTO) 1.7 % (0.0-8.0); HEMATOCRIT 38.6 % (36-48); LYMPHOCYTES % (AUTO) 18.3 % (21.0-51.0); MEAN CORPUSCULAR HEMOGLOBIN 27.4 pg (27.0-33.0); MEAN CORPUSCULAR HGB CONC 31.3 g/dL (32.0-36.0); MEAN CORPUSCULAR VOLUME 87.3 fL (79-99); MONOCYTES % (AUTO) 4.6 % (3.0-13.0); NEUTROPHILS % (AUTO) 74.4 % (40.0-77.0); PLATELET COUNT (AUTO) 287 K/uL (130-400); RED BLOOD CELL COUNT(AUTO) 4.42 MIL/uL (4.00-5.50); RED CELL DISTRIBUTION WIDTH 13.5 % (11.0-15.5); WHITE BLOOD COUNT (AUTO) 15.7 K/uL (4.8-10.8)
[2021-12-26 13:16] LABS: CREATININE 0.7 mg/dL (0.5-1.5); POTASSIUM 3.7 mmol/L (3.5-5.1)
[2021-12-26 14:15] VITALS: BP 159/77
[~2021-12-27] VITALS: Ht 152.4 cm; Wt 78.3 kg
[2021-12-27] VITALS (13 sets, daily range): BP systolic 92–122; BP diastolic 38–65
[~2021-12-27 05:54] MED LIST changes: -ACET-2079 PO; +ASCO100031 PO; +CALC-1038 PO; -CEPH500B PO; -CETI10CA5 PO; +FAMO-136 PO; +GLIM2TAB30 PO; -GLIM4TAB36 PO; -IBUP-2077 PO; +L.AC1CAP6 PO; +MELA5CAP PO; -METF-444 PO; +METF750T46 PO; -NITR0.4T50 SL; -QUET25TA36 PO; -TRAZ150T79 PO; +VITAMIN D PO; +ZINC PO
[2021-12-27] MEDS ORDERED: 0.9%NACL 1000ML 1,000 ML IV ONE (06:18)
[2021-12-27] MEDS ORDERED: MIDAZOLAM HCL 1 MG/ML 2ML VIAL ONE (06:55)
[2021-12-27] MEDS ORDERED: FENTANYL CITRATE PF 50 MCG/1 ML 2ML VIAL ONE (06:56)
[2021-12-27] MEDS ORDERED: BUPIVACAINE/PF 0.25% 30ML VIAL IJ ONE (07:01)
[2021-12-27] MEDS ORDERED: SODIUM BICARB [NEONATAL] 4.2% 10ML SYG ONE (07:01)
[2021-12-27] MEDS ORDERED: LIDOCAINE HCL 1% 20 ML VIAL ONE (07:02)
[2021-12-27] MEDS ORDERED: LIDOCAINE 1%-EPI 1:100,000 20 ML VIAL IJ ONE (07:03)
[2021-12-27] MEDS ORDERED: IOPAMIDOL 10 ML VIAL ONE (07:50)
[2021-12-27] MEDS ORDERED: LIDOCAINE HCL 1% MDV 50ML VIAL ONE (08:50)
[2021-12-27] MEDS ORDERED: BUPIVACAINE/PF 0.5% 30ML VIAL ONE (08:50)
== END 2021-12-27 09:25 | disposition home or self-care (01) ==
LOC: DAH 05:54
PROVIDERS: ATTEND Neurological Surgery
DX: M53.3 Sacrococcygeal disorders, not elsewhere classified (principal); I10 Essential (primary) hypertension; E11.9 Type 2 diabetes mellitus without complications; E66.9 Obesity, unspecified; Z79.82 Long term (current) use of aspirin; Z79.899 Other long term (current) drug therapy; Z79.01 Long term (current) use of anticoagulants; Z98.890 Other specified postprocedural states
CPT/HCPCS: 27096; 36415; 72202; 80048; 82948; 85025; 87635; A4215 ×2; A4221; A4222; A4223; A4663; A6260; C9803; J1030; J2250; J3010; J3490 ×5; J7030; Q9966

== ENCOUNTER 2022-02-06 00:01 | Emergency (ER) | payer OTHER ==
[~2022-02-06] VITALS: Ht 152.4 cm; Wt 77.1 kg
[2022-02-06] MEDS ORDERED: ACETAMINOPHEN 500 MG TABLET ONE (02:09)
[2022-02-06] MEDS ORDERED: KETOROLAC 60 MG VIAL (30MG/ML) IM ONE (03:30)
[2022-02-06 07:00] VITALS: BP 135/76
== END 2022-02-06 07:19 | disposition home or self-care (01) ==
LOC: EDH 00:01
DX: S00.83XA Contusion of other part of head, initial encounter (principal); S30.1XXA Contusion of abdominal wall, initial encounter; M46.1 Sacroiliitis, not elsewhere classified; E11.9 Type 2 diabetes mellitus without complications; E78.00 Pure hypercholesterolemia, unspecified; I10 Essential (primary) hypertension; M19.90 Unspecified osteoarthritis, unspecified site; Z88.1 Allergy status to other antibiotic agents; Z88.5 Allergy status to narcotic agent; Z79.1 Long term (current) use of non-steroidal anti-inflammatories (NSAID); Z79.82 Long term (current) use of aspirin; Z79.84 Long term (current) use of oral hypoglycemic drugs; Z79.899 Other long term (current) drug therapy; Y08.89XA Assault by other specified means, initial encounter; Y93.89 Activity, other specified; Y92.89 Other specified places as the place of occurrence of the external cause; Y99.8 Other external cause status
CPT/HCPCS: 74176; 96372; 99284; J1885

== ENCOUNTER 2022-03-06 12:03 | Emergency (ER) | payer OTHER ==
[~2022-03-06] VITALS: Ht 152.4 cm; Wt 77.6 kg
[2022-03-06] MEDS ORDERED: 0.9%NACL 1000ML 1,000 ML IV ONE (12:30)
[2022-03-06] MEDS ORDERED: DICYCLOMINE 20MG (10MG/ML) AMP IM STA (12:47)
[2022-03-06] MEDS ORDERED: KETOROLAC 15MG/ML VIAL (15MG/ML) IV ONE (13:00)
[2022-03-06] MEDS ORDERED: ONDANSETRON 4MG INJ IVP ONE (13:00)
[2022-03-06 13:11] LABS: BASOPHILS % (AUTO) 0.4 % (0.0-5.0); EOSINOPHILS % (AUTO) 0.9 % (0.0-8.0); HEMATOCRIT 38.9 % (36-48); LYMPHOCYTES % (AUTO) 12.3 % (21.0-51.0); MEAN CORPUSCULAR HEMOGLOBIN 28.1 pg (27.0-33.0); MEAN CORPUSCULAR HGB CONC 32.4 g/dL (32.0-36.0); MEAN CORPUSCULAR VOLUME 86.8 fL (79-99); MONOCYTES % (AUTO) 3.5 % (3.0-13.0); PLATELET COUNT (AUTO) 312 K/uL (130-400); RED BLOOD CELL COUNT(AUTO) 4.48 MIL/uL (4.00-5.50); RED CELL DISTRIBUTION WIDTH 13.8 % (11.0-15.5); WHITE BLOOD COUNT (AUTO) 16.4 K/uL (4.8-10.8)
[2022-03-06 13:24] LABS: CREATININE 0.8 mg/dL (0.5-1.5)
[2022-03-06 13:31] LABS: BILIRUBIN,TOTAL 0.4 mg/dL (0.2-1.0)
[2022-03-06 13:31] LABS: APPEARANCE,URINE CLEAR (CLEAR); BILIRUBIN,URINE NEGATIVE (NEGATIVE); COLOR,URINE YELLOW (YELLOW); GLUCOSE, URINE (UA) NEGATIVE (NEGATIVE); KETONES,URINE NEGATIVE (NEGATIVE); LEUKOCYTE ESTERASE ,URINE NEGATIVE (NEGATIVE); NITRATE,URINE NEGATIVE (NEGATIVE); OCCULT BLOOD,URINE NEGATIVE (NEGATIVE); PROTEIN,URINE TRACE mg/dL (NEGATIVE); UROBILINOGEN,URINE 0.2 mg/dL (0.2-1.0)
[2022-03-06 13:48] LABS: BACTERIA,URINE Rare /HPF (None Seen); RBC,URINE 0-1 /HPF (0-1); WBC,URINE 0-1 /HPF (0-1)
[2022-03-06 13:49] LABS: SQUAMOUS EPITHELIAL CELL,UR Rare /HPF (0-2)
[2022-03-06] MEDS ORDERED: BACI1CAP6 PO (15:35)
[2022-03-06] MEDS ORDERED: LOPE2 PO (15:35)
[2022-03-06] MEDS ORDERED: DICY20TA2 PO (15:35)
[2022-03-06] MEDS ORDERED: ONDA4TAB10 PO (15:35)
[2022-03-06 15:38] VITALS: BP 159/80
== END 2022-03-06 15:55 | disposition home or self-care (01) ==
LOC: EDH 12:03
DX: K52.9 Noninfective gastroenteritis and colitis, unspecified (principal); Z20.822 Contact with and (suspected) exposure to COVID-19
CPT/HCPCS: 36415; 80053; 81001; 82270; 83630; 83690; 85025; 87324; 87635; 87804 ×2; 96361; 96372; 96374; 96375; 99284; C9803; J0500; J1885; J2405; J7030

== ENCOUNTER → 2022-03-12 | Outpatient (CLI) | payer OTHER ==
[~2022-03-12] MED LIST changes: +BACI1CAP6 PO; +DICY20TA2 PO; +LOPE2 PO; +ONDA4TAB10 PO
== END | disposition home or self-care (01) ==
LOC: LAB 12:17
PROVIDERS: ATTEND Internal Medicine
DX: A04.72 Enterocolitis due to Clostridium difficile, not specified as recurrent (principal); R11.2 Nausea with vomiting, unspecified; R19.7 Diarrhea, unspecified
CPT/HCPCS: 82270

== ENCOUNTER 2022-05-08 06:02 | Day surgery (SDC) | payer OTHER ==
[2022-05-07 09:03] VITALS: BP 180/91
[2022-05-08] VITALS (13 sets, daily range): BP systolic 97–123; BP diastolic 54–69
[~2022-05-08] VITALS: Ht 152.4 cm; Wt 78.5 kg
[~2022-05-08 06:02] MED LIST changes: +CEFAZOLIN SODIUM 1 GM VIAL IVP SCH; -L.AC1CAP6 PO; -LOPE2 PO; -MELA5CAP PO; -ONDA4TAB10 PO; +QUET300T2 PO; +TRAZ150T79 PO
[2022-05-08] MEDS ORDERED: CEFAZOLIN SODIUM 1 GM VIAL ONE (06:10)
[2022-05-08] MEDS ORDERED: 0.9%NACL 1000ML 1,000 ML IV ONE (06:10)
[2022-05-08] MEDS ORDERED: BUPIVACAINE/PF 0.25% 30ML VIAL IJ ONE (07:05)
[2022-05-08] MEDS ORDERED: SODIUM BICARB [NEONATAL] 4.2% 10ML SYG ONE (07:05)
[2022-05-08] MEDS ORDERED: LIDOCAINE HCL 1% 10 ML VIAL ONE (07:05)
[2022-05-08] MEDS ORDERED: PROPOFOL 10 MG/ML 20ML VIAL IV ONE (07:34)
[2022-05-08] MEDS ORDERED: MIDAZOLAM HCL 1 MG/ML 2ML VIAL ONE (07:34)
[2022-05-08] MEDS ORDERED: FENTANYL CITRATE PF 50 MCG/1 ML 2ML VIAL ONE (07:34)
[2022-05-08] MEDS ORDERED: IOPAMIDOL 10 ML VIAL ONE (07:44)
[2022-05-08] MEDS ORDERED: LACT1CAP78 PO (15:26)
[2022-05-08] MEDS ORDERED: CETI10CA5 PO (15:26)
[2022-05-08] MEDS ORDERED: DILT240T13 PO (15:26)
[2022-05-08] MEDS ORDERED: FLUT16H NASAL (15:26)
[2022-05-08] MEDS ORDERED: ZINC30CA PO (15:26)
[2022-05-08] MEDS ORDERED: ADV250 IH (15:26)
[2022-05-08] MEDS ORDERED: NITR0.4T50 SL (15:26)
[2022-05-08] MEDS ORDERED: AMIL5TAB8 PO (17:12)
== END 2022-05-08 09:45 | disposition home or self-care (01) ==
LOC: DAH 06:02
PROVIDERS: ATTEND Neurological Surgery
DX: M53.3 Sacrococcygeal disorders, not elsewhere classified (principal); I10 Essential (primary) hypertension; E78.5 Hyperlipidemia, unspecified; J45.909 Unspecified asthma, uncomplicated; E11.9 Type 2 diabetes mellitus without complications; M19.90 Unspecified osteoarthritis, unspecified site; Z79.899 Other long term (current) drug therapy; Z79.82 Long term (current) use of aspirin; Z98.890 Other specified postprocedural states; Z98.891 History of uterine scar from previous surgery
CPT/HCPCS: 87426; 27096; 72202; 82948 ×2; A4663; A4215 ×2; J3010; J0690; J7030; J3490 ×3; J2250; J2704; J1030; Q9966; A4223; A4222; A4221; A4600

== ENCOUNTER 2022-05-08 11:40 | Observation (INO) | payer OTHER ==
[~2022-05-08] VITALS: Ht 152.4 cm; Wt 76.2 kg
[~2022-05-08 11:40] MED LIST changes: -CEFAZOLIN SODIUM 1 GM VIAL IVP SCH
[2022-05-08 12:02] LABS: BASOPHILS % (AUTO) 0.3 % (0.0-5.0); EOSINOPHILS % (AUTO) 0.6 % (0.0-8.0); LYMPHOCYTES % (AUTO) 10.7 % (21.0-51.0); MEAN CORPUSCULAR HGB CONC 32.6 g/dL (32.0-36.0); MONOCYTES % (AUTO) 2.9 % (3.0-13.0); NEUTROPHILS % (AUTO) 84.9 % (40.0-77.0); PLATELET COUNT (AUTO) 235 K/uL (130-400); RED BLOOD CELL COUNT(AUTO) 4.07 MIL/uL (4.00-5.50); RED CELL DISTRIBUTION WIDTH 13.3 % (11.0-15.5); WHITE BLOOD COUNT (AUTO) 15.6 K/uL (4.8-10.8)
[2022-05-08 12:17] LABS: ALBUMIN 3.7 g/dL (3.5-5.0); POTASSIUM 3.7 mmol/L (3.5-5.1)
[2022-05-08 13:20] VITALS: BP 149/77
[2022-05-08] MEDS ORDERED: LORAZEPAM 2 MG/ML 1 ML VIAL IVP ONE (13:30)
[2022-05-08] MEDS ORDERED: LACTULOSE 20 GM/30 ML UDCUP PO PRN (13:30)
[2022-05-08] MEDS ORDERED: ONDANSETRON 4MG INJ IV PRN (13:30)
[2022-05-08] MEDS ORDERED: LORAZEPAM 1 MG TABLET PO ONE (14:30)
[2022-05-08] MEDS ORDERED: ZINC30CA PO (15:26)
[2022-05-08] MEDS ORDERED: FLUT16H NASAL (15:26)
[2022-05-08] MEDS ORDERED: DILT240T13 PO (15:26)
[2022-05-08] MEDS ORDERED: LACT1CAP78 PO (15:26)
[2022-05-08] MEDS ORDERED: NITR0.4T50 SL (15:26)
[2022-05-08] MEDS ORDERED: ADV250 IH (15:26)
[2022-05-08] MEDS ORDERED: CETI10CA5 PO (15:26)
[2022-05-08] MEDS: 1/2 NS 1000ML 1,000 ML IV SCH (16:07)
[2022-05-08] MEDS: INSULIN HUMULIN R 100 UNIT/ML 3ML SQ SCH ×2 (16:30→21:05)
[2022-05-08] MEDS ORDERED: MEPERIDINE-PF 25 MG/ML SYG IM ONE (16:30)
[2022-05-08 17:00] VITALS: BP 142/78
[2022-05-08 17:08] LABS: APPEARANCE,URINE CLEAR (CLEAR); BILIRUBIN,URINE NEGATIVE (NEGATIVE); COLOR,URINE YELLOW (YELLOW); GLUCOSE, URINE (UA) NEGATIVE (NEGATIVE); KETONES,URINE NEGATIVE (NEGATIVE); LEUKOCYTE ESTERASE ,URINE NEGATIVE (NEGATIVE); NITRATE,URINE NEGATIVE (NEGATIVE); OCCULT BLOOD,URINE TRACE-INTACT (NEGATIVE); PROTEIN,URINE NEGATIVE (NEGATIVE); UROBILINOGEN,URINE 0.2 mg/dL (0.2-1.0)
[2022-05-08] MEDS ORDERED: AMIL5TAB8 PO (17:12)
[2022-05-08 17:20] LABS: BACTERIA,URINE Rare /HPF (None Seen); SQUAMOUS EPITHELIAL CELL,UR Rare /HPF (0-2); WBC,URINE 0-1 /HPF (0-1)
[2022-05-08 17:21] LABS: MUCUS,URINE Rare LPF (None Seen)
[2022-05-08] MEDS ORDERED: CLONIDINE HCL 0.1 MG TABLET PO PRN (17:30)
[2022-05-08 18:20] LABS: CRP QUANTITATIVE 15.2 mg/L (0.00-9.0)
[2022-05-08 19:25] VITALS: BP 131/72
[2022-05-08 23:21] VITALS: BP 135/75
[2022-05-09] VITALS (7 sets, daily range): BP systolic 143–171; BP diastolic 72–92
[2022-05-09] MEDS: 1/2 NS 1000ML 1,000 ML IV SCH ×2 (02:06→19:30)
[2022-05-09 04:18] LABS: BASOPHILS % (AUTO) 0.2 % (0.0-5.0); EOSINOPHILS % (AUTO) 0.1 % (0.0-8.0); HEMATOCRIT 34.6 % (36-48); LYMPHOCYTES % (AUTO) 9.2 % (21.0-51.0); MEAN CORPUSCULAR HEMOGLOBIN 27.9 pg (27.0-33.0); MEAN CORPUSCULAR HGB CONC 32.9 g/dL (32.0-36.0); MEAN CORPUSCULAR VOLUME 84.8 fL (79-99); MONOCYTES % (AUTO) 3.8 % (3.0-13.0); NEUTROPHILS % (AUTO) 85.6 % (40.0-77.0); PLATELET COUNT (AUTO) 240 K/uL (130-400); RED BLOOD CELL COUNT(AUTO) 4.08 MIL/uL (4.00-5.50); WHITE BLOOD COUNT (AUTO) 16.7 K/uL (4.8-10.8)
[2022-05-09 04:36] LABS: ALBUMIN 3.5 g/dL (3.5-5.0); CREATININE 0.9 mg/dL (0.5-1.5)
[2022-05-09] MEDS ORDERED: MEPERIDINE-PF 25 MG/ML SYG SQ PRN (07:30)
[2022-05-09] MEDS: INSULIN HUMULIN R 100 UNIT/ML 3ML SQ SCH ×4 (07:30→21:06)
[2022-05-09] MEDS: SOLU-MEDROL 125MG VIAL IVP SCH (08:48)
[2022-05-09] MEDS ORDERED: KETOROLAC 30MG VIAL (30MG/ML) IVP ONE (09:00)
[2022-05-09] MEDS ORDERED: CETIRIZINE HCL 5 MG TABLET PO SCH (09:00)
[2022-05-09] MEDS ORDERED: ACETAMINOPHEN 325 MG TAB ONE (15:01)
[2022-05-09] MEDS: DILTIAZEM 120MG SR CAP PO SCH (21:00)
[2022-05-09] MEDS ORDERED: TRAZODONE HCL 50 MG TAB PO SCH (21:00)
[2022-05-09] MEDS: GLIMEPIRIDE 2 MG TABLET PO SCH (21:02)
[2022-05-09] MEDS: KETOROLAC 30MG VIAL (30MG/ML) IVP SCH (21:42)
[2022-05-10] MEDS: 1/2 NS 1000ML 1,000 ML IV SCH (01:14)
[2022-05-10 03:45] VITALS: BP 148/76
[2022-05-10] MEDS: INSULIN HUMULIN R 100 UNIT/ML 3ML SQ SCH (06:08)
[2022-05-10] MEDS: SOLU-MEDROL 125MG VIAL IVP SCH (08:59)
[2022-05-10] MEDS: KETOROLAC 30MG VIAL (30MG/ML) IVP SCH (09:00)
[2022-05-10] MEDS: GLIMEPIRIDE 2 MG TABLET PO SCH (09:00)
[2022-05-10] MEDS ORDERED: ISOSORBIDE MONO 30MG SR TAB PO SCH (09:00)
[2022-05-10] MEDS ORDERED: AMILORIDE 5MG TAB PO SCH (09:00)
[2022-05-10] MEDS ORDERED: LOSARTAN 100 MG TABLET PO SCH (09:00)
[2022-05-10] MEDS: DILTIAZEM 120MG SR CAP PO SCH (09:00)
[2022-05-23] MEDS ORDERED: ACETAMINOPHEN 325 MG TAB PO PRN (15:06)
== END 2022-05-10 09:45 | disposition home or self-care (01) ==
LOC: EDH 11:40 → WSH 11:41
PROVIDERS: ADMIT Internal Medicine; ATTEND Internal Medicine
DX: M54.13 Radiculopathy, cervicothoracic region (principal); M75.101 Unspecified rotator cuff tear or rupture of right shoulder, not specified as traumatic; I25.10 Atherosclerotic heart disease of native coronary artery without angina pectoris; G43.909 Migraine, unspecified, not intractable, without status migrainosus; F32.9 Major depressive disorder, single episode, unspecified; I10 Essential (primary) hypertension; J45.909 Unspecified asthma, uncomplicated; E09.9 Drug or chemical induced diabetes mellitus without complications; T38.0X5A Adverse effect of glucocorticoids and synthetic analogues, initial encounter; Z90.710 Acquired absence of both cervix and uterus; Z79.899 Other long term (current) drug therapy
CPT/HCPCS: 96372 ×2; 96361 ×2; 82550; 83874; 84484 ×2; 80053 ×2; 85025 ×2; 85651; 82948 ×7; 86140; 86431; 81001; 36415 ×2; 72040; 71045; 72070; 73200; 76641; 72141; 72146; 93005; 96374; 96375; 71250; 73221; 96376; G0378 ×43; G0379; J2175; J1815 ×4; J7030; J2930 ×2; J1885

== ENCOUNTER 2022-07-03 13:24 | Inpatient (IN) | payer OTHER ==
[~2022-07-03] VITALS: Ht 152.4 cm; Wt 79.1 kg
[~2022-07-03 13:24] MED LIST changes: +ADV250 IH; -AEC81 PO; +CETI10CA5 PO; -DICY20TA2 PO; -DILT120C89 PO; +DILT240T13 PO; -FAMO-136 PO; +FLUT16H NASAL; +LACT1CAP78 PO; +NITR0.4T50 SL; -TYLENOL ARTHRITIS PO; -VITAMIN D PO; -ZINC PO; +ZINC30CA PO
[2022-07-03] MEDS ORDERED: DIAZEPAM 5 MG TABLET PO ONE (14:30)
[2022-07-03] MEDS ORDERED: KETOROLAC 60 MG VIAL (30MG/ML) IM ONE (14:30)
[2022-07-03 15:28] LABS: BASOPHILS % (AUTO) 0.4 % (0.0-5.0); EOSINOPHILS % (AUTO) 1.4 % (0.0-8.0); HEMATOCRIT 36.1 % (36-48); LYMPHOCYTES % (AUTO) 19.7 % (21.0-51.0); MEAN CORPUSCULAR HEMOGLOBIN 28.2 pg (27.0-33.0); MEAN CORPUSCULAR HGB CONC 33.2 g/dL (32.0-36.0); MEAN CORPUSCULAR VOLUME 84.9 fL (79-99); MONOCYTES % (AUTO) 4.4 % (3.0-13.0); NEUTROPHILS % (AUTO) 73.1 % (40.0-77.0); PLATELET COUNT (AUTO) 269 K/uL (130-400); RED BLOOD CELL COUNT(AUTO) 4.25 MIL/uL (4.00-5.50); RED CELL DISTRIBUTION WIDTH 14.3 % (11.0-15.5); WHITE BLOOD COUNT (AUTO) 12.3 K/uL (4.8-10.8)
[2022-07-03 15:37] LABS: CREATININE 0.7 mg/dL (0.5-1.5); POTASSIUM 4.1 mmol/L (3.5-5.1)
[2022-07-03] MEDS ORDERED: GADOTERATE MEGLUMINE 10 MMOL/20 ML VIAL IV ONE (15:42)
[2022-07-03 15:46] LABS: ALBUMIN 3.8 g/dL (3.5-5.0); CRP QUANTITATIVE 9.9 mg/L (0.00-9.0); TOTAL PROTEIN, SERUM 7.6 g/dL (6.0-8.3)
[2022-07-03] MEDS: INSULIN HUMULIN R 100 UNIT/ML 3ML SQ SCH ×2 (16:30→21:00)
[2022-07-03 17:27] LABS: APPEARANCE,URINE CLEAR (CLEAR); BILIRUBIN,URINE NEGATIVE (NEGATIVE); COLOR,URINE YELLOW (YELLOW); GLUCOSE, URINE (UA) NEGATIVE (NEGATIVE); KETONES,URINE NEGATIVE (NEGATIVE); LEUKOCYTE ESTERASE ,URINE NEGATIVE Leu/uL (NEGATIVE); NITRATE,URINE NEGATIVE (NEGATIVE); OCCULT BLOOD,URINE NEGATIVE (NEGATIVE); PROTEIN,URINE NEGATIVE (NEGATIVE); UROBILINOGEN,URINE 0.2 mg/dL (0.2-1.0)
[2022-07-03 17:37] LABS: BACTERIA,URINE Rare /HPF (None Seen); RBC,URINE 0-1 /HPF (0-1); SQUAMOUS EPITHELIAL CELL,UR Rare /HPF (0-2); WBC,URINE 0-1 /HPF (0-1)
[2022-07-03 17:38] LABS: HYALINE CASTS, URINE 0-1 /LPF (0-1 /LPF); MUCUS,URINE Rare LPF (None Seen)
[2022-07-03] MEDS: DEXAMETHASONE 4 MG TAB PO SCH (20:34)
[2022-07-03 21:50] VITALS: BP 182/97
[2022-07-03] MEDS ORDERED: DILT180C86 PO (22:44)
[2022-07-03] MEDS ORDERED: QUET100T PO (22:44)
[2022-07-03] MEDS ORDERED: CYCL10TA16 PO (22:45)
[2022-07-03] MEDS ORDERED: MV-M1TAB20 PO (22:47)
[2022-07-03] MEDS ORDERED: TRAM50TA4 PO (22:47)
[2022-07-03] MEDS ORDERED: ONDA22I PO (22:47)
[2022-07-04] VITALS: BP 139/79
[2022-07-04] MEDS ORDERED: CYCLOBENZAPRINE HCL 10 MG TABLET PO PRN (02:30)
[2022-07-04] MEDS ORDERED: NITROGLYCERIN 0.4 MG SL TAB SL SCH (02:30)
[2022-07-04] MEDS ORDERED: TRAMADOL HCL 50 MG TABLET PO PRN ×2 (02:30)
[2022-07-04] MEDS ORDERED: ALBUTEROL INHALER 90MCG/INH IH PRN (02:30)
[2022-07-04 04:00] VITALS: BP 137/68
[2022-07-04] MEDS ORDERED: ACET-2247 PO (04:51)
[2022-07-04] MEDS ORDERED: ACETAMINOPHEN 325 MG TAB ONE (04:54)
[2022-07-04] MEDS ORDERED: ACETAMINOPHEN 325 MG TAB PO SCH (05:00)
[2022-07-04] MEDS ORDERED: PHARMACY COMMUNICATION MISC SCH (06:00)
[2022-07-04] MEDS: INSULIN HUMULIN R 100 UNIT/ML 3ML SQ SCH ×3 (06:50→18:05)
[2022-07-04 08:00] VITALS: BP 162/83
[2022-07-04] MEDS ORDERED: ASCORBIC ACID 500 MG TAB PO SCH (09:00)
[2022-07-04] MEDS ORDERED: CALCIUM CARB 500MG PO SCH (09:00)
[2022-07-04] MEDS ORDERED: ISOSORBIDE MONO 30MG SR TAB PO SCH (09:00)
[2022-07-04] MEDS ORDERED: FLUTICASONE PROPIONATE 50MCG/SPRAY 16 GM BOTTLE EN SCH (09:00)
[2022-07-04] MEDS ORDERED: DILTIAZEM 180MG SR CAP PO SCH (09:00)
[2022-07-04] MEDS ORDERED: AMILORIDE 5MG TAB PO SCH (09:00)
[2022-07-04] MEDS ORDERED: ADVAIR IH SCH (09:00)
[2022-07-04] MEDS ORDERED: LACTOBACILLUS RHAMNOSUS GG 1 EACH CAP.SPRINK PO SCH (09:00)
[2022-07-04] MEDS ORDERED: SERTRALINE HCL 50 MG TABLET PO SCH (09:00)
[2022-07-04] MEDS ORDERED: CETIRIZINE HCL 5 MG TABLET PO SCH (09:00)
[2022-07-04] MEDS ORDERED: VIT D3 COMPLETE PO SCH (09:00)
[2022-07-04] MEDS ORDERED: ZINC PO SCH (09:00)
[2022-07-04] MEDS: GABAPENTIN 100 MG CAPSULE PO SCH ×2 (09:34→14:49)
[2022-07-04] MEDS: DEXAMETHASONE 4 MG TAB PO SCH (09:36)
[2022-07-04 12:00] VITALS: BP 164/87
[2022-07-04] MEDS ORDERED: DEXAMETHASONE SOD PHOSPHATE 4 MG/ML 1ML VIAL IV SCH (12:00)
[2022-07-04 16:00] VITALS: BP 154/76
[2022-07-04] MEDS ORDERED: LOSARTAN 100 MG TABLET PO SCH (17:00)
[2022-07-04] MEDS ORDERED: SIMVASTATIN 10 MG TABLET PO SCH (21:00)
[2022-07-04] MEDS ORDERED: QUETIAPINE FUMARATE 100 MG TAB PO SCH (21:00)
[2022-07-04] MEDS ORDERED: MONTELUKAST SODIUM 10 MG TAB PO SCH (21:00)
[2022-07-04] MEDS ORDERED: TRAZODONE HCL 50 MG TAB PO SCH (21:00)
== END 2022-07-04 19:40 | disposition home or self-care (01) | DRG 74 ==
LOC: EDH 13:24 → EDHIP 15:01 → 3CH 21:53
PROVIDERS: ADMIT Internal Medicine; ATTEND Internal Medicine
DX: M54.12 Radiculopathy, cervical region (principal); E11.9 Type 2 diabetes mellitus without complications; I10 Essential (primary) hypertension; M62.838 Other muscle spasm; E78.00 Pure hypercholesterolemia, unspecified; G40.909 Epilepsy, unspecified, not intractable, without status epilepticus; F32.A Depression, unspecified; J45.909 Unspecified asthma, uncomplicated; Z90.710 Acquired absence of both cervix and uterus
CPT/HCPCS: 36415; 71045; 72156; 80053; 81001; 82550; 82948; 84484; 85025; 86140; G0378; J1100; J1815; J1885; J8540

== ENCOUNTER → 2023-12-17 | Outpatient (CLI) | payer OTHER ==
[~2023-12-17] MED LIST changes: +ACET-2247 PO; +ALBU1.252 IH; -BACI1CAP6 PO; +CETI-89 PO; +CYCL10TA16 PO; +DILT120C89 PO; +DILT180C77 PO; -DILT240T13 PO; +FLUT1BLS3 IH; +HYDR12.54 PO; +ICOS1CAP PO; +INSLAN SQ; +IRBE1TAB67 PO; -IRBE300T18 PO; +IRBE300T26 PO; +MELA1TAB17 PO; +MONT-46 PO; +MV-M1TAB20 PO; +ONDA22I PO; +QUET100T PO; -QUET300T2 PO; +SIMV-43 PO; +TRAM50TA4 PO
== END | disposition home or self-care (01) ==
LOC: OIH 11:07
PROVIDERS: ATTEND Internal Medicine Cardiovascular Disease
DX: Z13.6 Encounter for screening for cardiovascular disorders (principal); R93.1 Abnormal findings on diagnostic imaging of heart and coronary circulation; I25.10 Atherosclerotic heart disease of native coronary artery without angina pectoris
CPT/HCPCS: 75571